=== PATIENT | male | born 1955 | race Caucasian/White ===

== ENCOUNTER 2018-03-10 20:22 | Inpatient (IN) | payer BC ==
[~2018-03-10] VITALS: Ht 182.9 cm; Wt 99.9 kg
--- NOTE | 2018-03-10 20:40 | NUR ---
NS running upon arrival as ordered @ [facility]; liters 2 & 3 infusing.
--- NOTE | 2018-03-10 21:02 | NUR ---
FAMILY CONTACT, EMILE GLENFORD- [phone] (HOME).
--- NOTE | 2018-03-10 21:06 | NUR ---
BEST FAMILY CONTACT LIDIA KING ([place]) [phone].
--- NOTE | 2018-03-10 21:08 | NUR ---
NS liter 2 completed; liter 3 continues to infuse.
[2018-03-10] MEDS ORDERED: LITH150C8 PO (21:24)
--- NOTE | 2018-03-10 21:48 | NUR ---
Discussed pt's HS meds with Dr Stearns; new order for [place] 150mg x1 now received.
[2018-03-10] MEDS ORDERED: lithium carbonate 150mg capsule PO SCH (21:50)
--- NOTE | 2018-03-10 21:50 | NUR ---
NS 3L infusing upon arrival, completed.
[2018-03-10] MEDS: sodium chloride 0.45% 1,000 ML IV SCH (22:24)
[2018-03-10] MEDS ORDERED: morphine 4 MG/ML inj SYRINge IV PRN (22:25)
[2018-03-10] MEDS ORDERED: magnesium hydroxide 30ml (MOM) UD suspension PO PRN (22:25)
[2018-03-10] MEDS ORDERED: mag hydrox/Alum hydrox/simeth 30ml oral suspension PO PRN (22:25)
[2018-03-10] MEDS ORDERED: acetaminophen 325mg tablet PO PRN ×2 (22:25)
[2018-03-10] MEDS ORDERED: HYDROmorphone 1 mg/ml syringe IV PRN (22:25)
[2018-03-10] MEDS ORDERED: diphenhydrAMINE 25mg capsule PO PRN (22:25)
[2018-03-10] MEDS ORDERED: hydrALAZINE 20mg/ml inj. IV PRN (22:25)
[2018-03-10] MEDS ORDERED: metoclopramide 5 mg/ml inj IV PRN (22:25)
[2018-03-10] MEDS ORDERED: diphenhydrAMINE 50 mg/ml inj IV PRN (22:25)
[2018-03-10] MEDS ORDERED: bisacodyl 10mg suppository rectal RC PRN (22:25)
[2018-03-10] MEDS ORDERED: ondansetron/PF 4mg/2ml inj IV PRN (22:25)
--- NOTE | 2018-03-10 22:55 | NUR ---
NOTE: Pt admission assessment inadvertantly charted by this RN under BRupp. M/S RN Eleonora to call back with room status as she was unaware pt Flu +.
[2018-03-10 22:58] LABS: ALANINE AMINOTRANSFERASE 560 U/L (12-78); ALBUMIN 3.3 G/DL (3.4-5.0); ALBUMIN/GLOBULIN RATIO 1.1 (1.1-1.5); ALKALINE PHOSPHATASE 137 IU/L (46-116); ANION GAP 14 (8-16); BILIRUBIN,TOTAL 1.6 MG/DL (0.1-1.0); BLOOD UREA NITROGEN 34 MG/DL (7-18); BUN/CREATININE RATIO 11.7 (5.4-32.0); CALCIUM 7.5 MG/DL (8.5-10.1); CHLORIDE 102 MMOL/L (99-107); CREATININE 2.91 MG/DL (0.60-1.10); GLUCOSE 96 MG/DL (70-104); POTASSIUM 3.3 MMOL/L (3.5-5.1); SODIUM 137 MMOL/L (135-145); TOTAL CARBON DIOXIDE 20.7 MMOL/L (24-32); TOTAL PROTEIN 6.3 G/DL (6.4-8.2); eGFR 22 ML/MIN
[2018-03-10 23:00] LABS: LIPASE 239 U/L (73-393); MAGNESIUM 2.1 MG/DL (1.5-2.4); PHOSPHORUS 3.8 MG/DL (2.3-4.5)
--- NOTE | 2018-03-10 23:05 | NUR ---
Received report from Addis HARP in ER, pt arrived via [place] scooted over to hospital bed, on 2.5L of O2 via NC, will further assess.
[2018-03-10 23:10] LABS: BASOPHILS % (AUTO) 0.1 % (0-1); EOSINOPHILS % (AUTO) 0.1 % (0-6); HEMATOCRIT 35.6 % (42.0-52.0); HEMOGLOBIN 12.6 g/dl (14.0-17.9); LYMPHOCYTES # (AUTO) 0.3 X10'3 (1.1-4.8); LYMPHOCYTES % (AUTO) 2.7 % (21-51); MEAN CORPUSCULAR HEMOGLOBIN 31.4 PG (27.0-31.0); MEAN CORPUSCULAR HGB CONC 35.3 % (33.0-36.5); MEAN PLATELET VOLUME 9.8 FL (7.4-10.4); MONOCYTES # (AUTO) 0.3 X10'3 (0-0.9); MONOCYTES % (AUTO) 2.1 % (2-12); PLATELET COUNT 98 X10'3 (140-440); RED CELL DISTRIBUTION WIDTH 12.7 % (11.5-14.5); WHITE BLOOD COUNT 12.6 X10'3 (4.5-11.0)
[2018-03-10 23:29] LABS: PLATELET ESTIMATE DECREASED; TOTAL CELLS COUNTED 100
[2018-03-10 23:32] LABS: ASPARTATE AMINO TRANSFERASE 1073 U/L (10-37)
[2018-03-10 23:43] VITALS: BP 157/102
[2018-03-10 23:44] LABS: HEMOGLOBIN A1C 5.3 % (4.5-6.2)
[2018-03-11 00:09] VITALS: BP 164/112
--- NOTE | 2018-03-11 01:02 | NUR ---
Rechecked pts B/P it was 156/102
[2018-03-11 01:03] VITALS: BP 156/102
[2018-03-11] MEDS ORDERED: potassium Cl 20 mEq SR tablet PO PRN (01:05)
[2018-03-11] MEDS ORDERED: potassium Cl 40MEQ/NS 500ml 500 ML IV PRN ×2 (01:05)
[2018-03-11] MEDS: potassium Cl 20 mEq SR tablet PO PRN ×3 (01:52→14:26)
--- NOTE | 2018-03-11 03:18 | NUR ---
Notified Dr. Sepulveda about pts B/P: 157/117 Dr. sepulveda was not worried no new orders.
[2018-03-11 05:02] LABS: BASOPHILS % (AUTO) 0.1 % (0-1); EOSINOPHILS % (AUTO) 0.1 % (0-6); HEMOGLOBIN 13.3 g/dl (14.0-17.9); LYMPHOCYTES # (AUTO) 0.3 X10'3 (1.1-4.8); MEAN CORPUSCULAR HEMOGLOBIN 31.3 PG (27.0-31.0); MEAN CORPUSCULAR HGB CONC 34.9 % (33.0-36.5); MEAN CORPUSCULAR VOLUME 89.6 FL (78-98); MEAN PLATELET VOLUME 9.4 FL (7.4-10.4); MONOCYTES # (AUTO) 0.2 X10'3 (0-0.9); MONOCYTES % (AUTO) 1.1 % (2-12); NEUTROPHILS # (AUTO) 13.6 X10'3 (1.8-7.7); NEUTROPHILS % (AUTO) 96.7 % (42-75); PLATELET COUNT 79 X10'3 (140-440); RED BLOOD COUNT 4.24 X10'6 (4.70-6.10); RED CELL DISTRIBUTION WIDTH 12.8 % (11.5-14.5); WHITE BLOOD COUNT 14.1 X10'3 (4.5-11.0)
[2018-03-11 05:20] LABS: CLARITY,URINE CLEAR (Clear); GLUCOSE, URINE NEGATIVE (Neg); KETONES,URINE TRACE mg/dl (Neg); LEUKOCYTE ESTERASE ,URINE NEGATIVE (Neg); NITRITES, URINE NEGATIVE (Neg); OCCULT BLOOD,URINE LARGE (Neg); PROTEIN,URINE 100 mg/dl (Neg)
[2018-03-11 05:20] LABS: ALBUMIN 3.1 G/DL (3.4-5.0); ALBUMIN/GLOBULIN RATIO 1.1 (1.1-1.5); ALKALINE PHOSPHATASE 167 IU/L (46-116); ANION GAP 22 (8-16); BILIRUBIN,DIRECT 2.1 MG/DL (0-0.3); BLOOD UREA NITROGEN 42 MG/DL (7-18); BUN/CREATININE RATIO 12.2 (5.4-32.0); CALCIUM 7.5 MG/DL (8.5-10.1); CHLORIDE 99 MMOL/L (99-107); CHOL/HDL RATIO 5.6 (0.00-4.99); CHOLESTEROL 145 MG/DL (0-200); CREATININE 3.43 MG/DL (0.60-1.10); GLUCOSE 97 MG/DL (70-104); HDL CHOLESTEROL 26 MG/DL (35-60); LDL CHOLESTEROL 112 MG/DL (50-100); POTASSIUM 3.2 MMOL/L (3.5-5.1); SODIUM 137 MMOL/L (135-145); TOTAL CARBON DIOXIDE 16.5 MMOL/L (24-32); TRIGLYCERIDES 49 MG/DL (20-135); eGFR 18 ML/MIN
[2018-03-11 05:30] LABS: COLOR,URINE PINK (Yellow); UA COLLECTION TYPE NON-SPECIFIED
[2018-03-11 05:34] LABS: COARSE GRANULAR CAST 0-3 /LPF (NEGATIVE)
[2018-03-11 05:35] LABS: BACTERIA,URINE FEW /HPF (Neg); RBC,URINE 50-100 /HPF (0-2); SQUAMOUS EPITHELIAL CELL,UR FEW /LPF (FEW); WBC,URINE 0-4 /HPF (0-4)
[2018-03-11] MEDS: sodium chloride 0.45% 1,000 ML IV SCH (05:36)
[2018-03-11 05:45] LABS: URINE AMPHETAMINE SCREEN NEGATIVE (Neg); URINE BARBITUATE SCREEN NEGATIVE (Neg); URINE BENZODIAZEPINES SCREEN NEGATIVE (Neg); URINE CANNABINOID SCREEN NEGATIVE (Neg); URINE COCAINE SCREEN NEGATIVE (Neg); URINE METHADONE SCREEN NEGATIVE (Neg); URINE OPIATE SCREEN NEGATIVE (Neg); URINE PHENCYCLIDINE SCREEN NEGATIVE (Neg)
[2018-03-11 05:46] LABS: ALANINE AMINOTRANSFERASE 1278 U/L (12-78)
[2018-03-11 05:47] LABS: ASPARTATE AMINO TRANSFERASE 2402 U/L (10-37)
--- NOTE | 2018-03-11 06:17 | NUR ---
Gave report to Nickie HARP, pt is awake and alert on 3L of O2 via NC, pt would like to know when Abdomen U/S is so he can have some water.
--- NOTE | 2018-03-11 06:45 | NUR ---
Patient in room RAVI 341. I have received report from KATIUSKA Robles and had the opportunity to ask questions and assume patient care.
[2018-03-11 07:07] VITALS: BP 167/102
[2018-03-11] MEDS ORDERED: docusate sod 100mg capsule PO SCH (08:00)
[2018-03-11] MEDS ORDERED: K and/or MAG REPLACEMENT MC SCH (08:00)
[2018-03-11] MEDS ORDERED: azithromycin/NS 500mg/250ml 250 ML IV SCH (08:00)
[2018-03-11] MEDS ORDERED: lisinopril 10 MG tablet PO SCH (08:00)
[2018-03-11] MEDS ORDERED: CefTRIAXone/D5W-Rocephin 1gm 50 ML IV SCH (08:00)
[2018-03-11] MEDS ORDERED: atorvastatin 20mg tablet PO SCH (08:00)
[2018-03-11] MEDS: pantoprazole 40mg Tablet.DR PO SCH (09:23)
[2018-03-11] MEDS: aspirin 81mg tab.chew PO SCH (09:25)
[2018-03-11] MEDS: metoprolol tartrate 25mg tablet PO SCH ×2 (09:26→20:00)
[2018-03-11] MEDS: nitroGLYCERIN 0.4mg/hour patch TD SCH (09:26)
--- NOTE | 2018-03-11 13:30 | NUR ---
Rapid Response called for pt. Pt. diaphoretic, skin mottled, SOB, O2 sat of 96% on 3L nc.
[2018-03-11 13:50] LABS: ABG BASE EXCESS -16.9 mmol/L (-2.0-3.0); ABG OXYGEN SATURATION 95.6 % (95-98); ABG PCO2 (T) 15.2 mmHg (35.0-48.0); ABG PH (T) 7.279 (7.350-7.450); ABG PO2 (T) 92.7 mmHg (83-108); ALLEN'S TEST Positive; FCOHb 0.3 % (0.5-1.5); FMetHb 0.1 % (0.3-1.12); FO2Hb 95.2 % (94-100); TOTAL HEMOGLOBIN 14.9 G/dl (14.0-18.0)
[2018-03-11] MEDS ORDERED: furosemide 40mg/4ml inj IV ONE (14:10)
[2018-03-11 15:00] VITALS: BP 142/93
--- NOTE | 2018-03-11 15:00 | NUR ---
Pt. transferred to PCU. Report called to KATIUSKA Adhikari. Pt alert and oriented. All belongings sent with pt.
--- NOTE | 2018-03-11 15:00 | NUR ---
patient received to room 3008, Dr. Hopkins at the bedside ordering a lot of new labs to be drawn. Patient is alert and answering all questions
[2018-03-11] MEDS ORDERED: methylPREDNISolone sod succ 125mg/2ml vial IV ONE ×2 (15:20→18:00)
[2018-03-11] MEDS ORDERED: nicotine 21mg patch - 24 hr TD ONE (15:20)
--- NOTE | 2018-03-11 15:40 | NUR ---
Extended PIV inserted to the right upper arm using ultrasound. Elizabeth well Addendum: 03/11/18 at 1541 by Adelaide Crenshaw RN Amended: Links added.
[2018-03-11 16:24] LABS: BASOPHILS % (AUTO) 0.1 % (0-1); EOSINOPHILS % (AUTO) 0 % (0-6); HEMATOCRIT 41.7 % (42.0-52.0); LYMPHOCYTES # (AUTO) 0.7 X10'3 (1.1-4.8); LYMPHOCYTES % (AUTO) 4.5 % (21-51); MEAN CORPUSCULAR HEMOGLOBIN 30.6 PG (27.0-31.0); MEAN CORPUSCULAR HGB CONC 33.6 % (33.0-36.5); MEAN CORPUSCULAR VOLUME 91.1 FL (78-98); MEAN PLATELET VOLUME 9.4 FL (7.4-10.4); MONOCYTES # (AUTO) 0.2 X10'3 (0-0.9); MONOCYTES % (AUTO) 1.4 % (2-12); NEUTROPHILS # (AUTO) 14.4 X10'3 (1.8-7.7); PLATELET COUNT 92 X10'3 (140-440); RED BLOOD COUNT 4.57 X10'6 (4.70-6.10); RED CELL DISTRIBUTION WIDTH 12.9 % (11.5-14.5); WHITE BLOOD COUNT 15.3 X10'3 (4.5-11.0)
[2018-03-11 16:34] LABS: LACTIC SEPSIS 8.4 MMOL/L (0.4-2.0)
[2018-03-11 16:36] LABS: INR 2.1 INR; PARTIAL THROMBOPLASTIN TIME 48 SECONDS (22-32); PROTHROMBIN TIME 20.1 SECONDS (9.0-12.0)
[2018-03-11 16:39] LABS: ALBUMIN 3.2 G/DL (3.4-5.0); ALKALINE PHOSPHATASE 181 IU/L (46-116); AMYLASE 148 U/L (25-115); ANION GAP 26 (8-16); BILIRUBIN,TOTAL 2.9 MG/DL (0.1-1.0); BLOOD UREA NITROGEN 57 MG/DL (7-18); BUN/CREATININE RATIO 11.3 (5.4-32.0); CHLORIDE 97 MMOL/L (99-107); CREATININE 5.06 MG/DL (0.60-1.10); ETHANOL < 0.010 GM/DL (0.0-0.010); GLUCOSE 72 MG/DL (70-104); LIPASE 544 U/L (73-393); MAGNESIUM 2.6 MG/DL (1.5-2.4); POTASSIUM 5.5 MMOL/L (3.5-5.1); SODIUM 135 MMOL/L (135-145); TOTAL PROTEIN 6.4 G/DL (6.4-8.2); eGFR 12 ML/MIN
--- NOTE | 2018-03-11 17:01 | NUR ---
PAGER ID: [phone] MESSAGE: patient in 3008, new admit, LACTIC IS 8.4
[2018-03-11 17:08] LABS: TOTAL CARBON DIOXIDE 12.2 MMOL/L (24-32); TROPONIN I 85.65 NG/ML (0.0-0.05)
[2018-03-11 17:09] LABS: ALANINE AMINOTRANSFERASE 2068 U/L (12-78); PHOSPHORUS 11.2 MG/DL (2.3-4.5)
[2018-03-11 17:13] LABS: ASPARTATE AMINO TRANSFERASE 4199 U/L (10-37)
[2018-03-11] MEDS: oseltamivir 30mg capsule PO SCH (17:19)
--- NOTE | 2018-03-11 17:34 | NUR ---
Dr. Calvillo at the bedside asking the patient if he wants to be FULL CODE, patient states that he does not want CPR and he wants to be DNR. Karli consulting to see if patient wants to go to ICU and he is saying that he just wants to be kept comfortable instead. All critical lab values have been called in to Dr. Pfeiffer.
[2018-03-11 18:00] VITALS: BP 128/86
[2018-03-11] MEDS: DOBUTamine-DoBUTrex 500mg/D5W 250 ML IV SCH (18:15)
--- NOTE | 2018-03-11 18:25 | NUR ---
dobutamine drip started at 5mcg and patient placed on bedside monitor.
--- NOTE | 2018-03-11 18:33 | NUR ---
Patient in room PCU 3008. I have received report from Mary HARP and had the opportunity to ask questions and assume patient care.
[2018-03-11] MEDS ORDERED: morphine 4 MG/ML inj SYRINge IV PRN (19:00)
[2018-03-11] MEDS ORDERED: LORazepam 2 mg/ml vial IV PRN (19:00)
[2018-03-11] MEDS: lactobacillus rhamnosus 10,000 MMU CELLS/CAPSULE PO SCH (20:13)
[2018-03-11] MEDS: lactulose 20gm/30ml cup PO SCH (20:13)
[2018-03-11 22:00] VITALS: BP 118/76
[2018-03-11] MEDS: piperacillin/tazo 3.375gm/50ml 50 ML IV SCH (23:32)
[2018-03-12] VITALS (9 sets, daily range): BP systolic 110–140; BP diastolic 69–99
[2018-03-12 00:52] LABS: CLARITY,URINE SLIGHTLY CLOUDY (Clear); COLOR,URINE YELLOW (Yellow); GLUCOSE, URINE 100 mg/dl (Neg); KETONES,URINE TRACE mg/dl (Neg); LEUKOCYTE ESTERASE ,URINE NEGATIVE (Neg); NITRITES, URINE NEGATIVE (Neg); OCCULT BLOOD,URINE LARGE (Neg); PH,URINE 6.5 (4.8-8.0); PROTEIN,URINE >=300 mg/dl (Neg)
[2018-03-12 01:00] LABS: TOTAL PROTEIN,URINE RANDOM 1024.5 MG/DL
[2018-03-12 01:16] LABS: UA COLLECTION TYPE NON-SPECIFIED
[2018-03-12 01:19] LABS: COARSE GRANULAR CAST 0-3 /LPF (NEGATIVE); SQUAMOUS EPITHELIAL CELL,UR MODERATE /LPF (FEW)
[2018-03-12 01:20] LABS: BACTERIA,URINE FEW /HPF (Neg); RBC,URINE TNTC /HPF (0-2)
[2018-03-12 02:29] LABS: UA EOSINOPHILS NO EOS /HPF
[2018-03-12] MEDS: piperacillin/tazo 3.375gm/50ml 50 ML IV SCH ×4 (03:09→21:52)
[2018-03-12] MEDS: linezolid 600mg/300ml PREMIX 300 ML IV SCH ×3 (04:25→20:14)
[2018-03-12 05:45] LABS: BASOPHILS % (AUTO) 0.1 % (0-1); EOSINOPHILS % (AUTO) 0 % (0-6); HEMATOCRIT 32.7 % (42.0-52.0); HEMOGLOBIN 11.1 g/dl (14.0-17.9); LYMPHOCYTES # (AUTO) 0.5 X10'3 (1.1-4.8); LYMPHOCYTES % (AUTO) 4.2 % (21-51); MEAN CORPUSCULAR HEMOGLOBIN 31.2 PG (27.0-31.0); MEAN CORPUSCULAR HGB CONC 34.2 % (33.0-36.5); MEAN CORPUSCULAR VOLUME 91.3 FL (78-98); MEAN PLATELET VOLUME 9.3 FL (7.4-10.4); MONOCYTES # (AUTO) 0.1 X10'3 (0-0.9); MONOCYTES % (AUTO) 0.8 % (2-12); NEUTROPHILS # (AUTO) 10.2 X10'3 (1.8-7.7); NEUTROPHILS % (AUTO) 94.9 % (42-75); PLATELET COUNT 54 X10'3 (140-440); RED BLOOD COUNT 3.58 X10'6 (4.70-6.10); RED CELL DISTRIBUTION WIDTH 12.9 % (11.5-14.5); WHITE BLOOD COUNT 10.8 X10'3 (4.5-11.0)
--- NOTE | 2018-03-12 06:27 | NUR ---
Problems reprioritized. Patient report given, questions answered & plan of care reviewed with Kimberly HARP.
--- NOTE | 2018-03-12 06:37 | NUR ---
Patient in room PCU 3008. I have received report from Paul HARP and had the opportunity to ask questions and assume patient care.
--- NOTE | 2018-03-12 07:13 | NUR ---
Spoke with Debbie Adair regarding critical calcium of 5.1 and critical glucose of 408. I checked capillary glucose with glucometer and result was 123. New order for an Ionized calcium.
[2018-03-12] MEDS: nitroGLYCERIN 0.4mg/hour patch TD SCH (08:00)
[2018-03-12] MEDS: nicotine 21mg patch - 24 hr TD SCH (08:00)
[2018-03-12] MEDS ORDERED: methylPREDNISolone sod succ/PF 40mg inj. IV ONE (08:00)
[2018-03-12] MEDS: lactobacillus rhamnosus 10,000 MMU CELLS/CAPSULE PO SCH ×2 (08:35→20:13)
[2018-03-12] MEDS: oseltamivir 30mg capsule PO SCH (08:35)
[2018-03-12] MEDS: aspirin 81mg tab.chew PO SCH (08:36)
[2018-03-12] MEDS: carvedilol 6.25mg tablet PO SCH ×2 (08:36→20:13)
[2018-03-12] MEDS: lactulose 20gm/30ml cup PO SCH ×2 (08:36→20:13)
[2018-03-12] MEDS: pantoprazole 40mg Tablet.DR PO SCH (08:37)
[2018-03-12 08:52] LABS: HBSAG SCREEN Negative (Negative); HEP A AB, IGM Negative (Negative); HEP B CORE AB, IGM Negative (Negative); HEP B CORE AB, TOT Negative (Negative); HEPATITIS C ANTIBODY <0.1 s/co ratio (0.0-0.9)
[2018-03-12] MEDS: DOBUTamine-DoBUTrex 500mg/D5W 250 ML IV SCH (09:20)
[2018-03-12 09:59] LABS: ALBUMIN 2.9 G/DL (3.4-5.0); ALKALINE PHOSPHATASE 151 IU/L (46-116); ANION GAP 20 (8-16); BILIRUBIN,TOTAL 1.8 MG/DL (0.1-1.0); BLOOD UREA NITROGEN 83 MG/DL (7-18); BUN/CREATININE RATIO 12.6 (5.4-32.0); CHLORIDE 97 MMOL/L (99-107); CREATININE 6.58 MG/DL (0.60-1.10); GLUCOSE 130 MG/DL (70-104); POTASSIUM 4.4 MMOL/L (3.5-5.1); SODIUM 132 MMOL/L (135-145); TOTAL CARBON DIOXIDE 15.1 MMOL/L (24-32); TOTAL PROTEIN 5.7 G/DL (6.4-8.2); eGFR 9 ML/MIN
[2018-03-12 10:26] LABS: ALANINE AMINOTRANSFERASE 4887 U/L (12-78); ASPARTATE AMINO TRANSFERASE > 7000 U/L (10-37)
[2018-03-12 10:27] LABS: CALCIUM 5.6 MG/DL (8.5-10.1)
--- NOTE | 2018-03-12 10:40 | NUR ---
PAGER ID: [phone] MESSAGE: [phone] Geraldo Gasca Critical low calcium of 5.6. All labs are in. Thank you, Kimberly #[phone] Addendum: 03/12/18 at 1100 by Kimberly Thornton RN Dr. Pfeiffer called back. New orders for calcium gluconate 2 gm IV now, and repeat CMP,CBC, Ammonia, Lactic Acid, Lipase, Troponin, and PBNP at 1400.
[2018-03-12] MEDS ORDERED: calcium gluconate inj. 2 GM in normal saline 100ml IV soln 80 ML IV ONE (10:50)
[2018-03-12 11:49] LABS: CREATINE KINASE 21461 U/L (39-308)
[2018-03-12] MEDS ORDERED: calcium chloride 100 MG/1 ML inj IV ONE (12:35)
[2018-03-12] MEDS ORDERED: calcium chloride inj. 2,000 MG in normal saline 100ml IV soln 80 ML IV ONE (12:45)
[2018-03-12 14:29] LABS: BASOPHILS # (AUTO) 0.1 X10'3 (0-0.2); BASOPHILS % (AUTO) 0.7 % (0-1); EOSINOPHILS % (AUTO) 0 % (0-6); HEMATOCRIT 35.7 % (42.0-52.0); HEMOGLOBIN 11.8 g/dl (14.0-17.9); LYMPHOCYTES # (AUTO) 0.6 X10'3 (1.1-4.8); LYMPHOCYTES % (AUTO) 4.3 % (21-51); MEAN CORPUSCULAR HEMOGLOBIN 30.1 PG (27.0-31.0); MEAN CORPUSCULAR HGB CONC 33.1 % (33.0-36.5); MEAN CORPUSCULAR VOLUME 91.1 FL (78-98); MEAN PLATELET VOLUME 9.4 FL (7.4-10.4); MONOCYTES # (AUTO) 0.1 X10'3 (0-0.9); MONOCYTES % (AUTO) 0.9 % (2-12); NEUTROPHILS # (AUTO) 12.7 X10'3 (1.8-7.7); NEUTROPHILS % (AUTO) 94.1 % (42-75); PLATELET COUNT 52 X10'3 (140-440); RED BLOOD COUNT 3.91 X10'6 (4.70-6.10); RED CELL DISTRIBUTION WIDTH 13.1 % (11.5-14.5); WHITE BLOOD COUNT 13.5 X10'3 (4.5-11.0)
--- NOTE | 2018-03-12 14:50 | NUR ---
Zyvox ed: Pt currently receiving Zyvox. Attempted visit with pt at bedside however pt was sleeping and did not wake for RD visit. Patient's present in the room, given written and verbal low tyramine nutrition therapy education with RD contact information. Will remain available. Addendum: 03/12/18 at [address] Amended: Links added.
[2018-03-12 14:59] LABS: PLATELET ESTIMATE DECREASED; TOTAL CELLS COUNTED 100
[2018-03-12 15:00] LABS: BURR CELLS 2+
[2018-03-12] MEDS: sodium bicarbonate (8.4%) inj. 150 MEQ in dextrose 5%-water 1,000 ML IV SCH (15:08)
--- NOTE | 2018-03-12 18:32 | NUR ---
Problems reprioritized. Patient report given, questions answered & plan of care reviewed with Deep RN.
[2018-03-13] VITALS (17 sets, daily range): BP systolic 117–138; BP diastolic 74–98
[2018-03-13] MEDS: DOBUTamine-DoBUTrex 500mg/D5W 250 ML IV SCH ×2 (02:50→17:10)
[2018-03-13] MEDS: piperacillin/tazo 3.375gm/50ml 50 ML IV SCH ×3 (02:50→14:04)
[2018-03-13 06:47] LABS: BASOPHILS % (AUTO) 0.2 % (0-1); EOSINOPHILS % (AUTO) 0 % (0-6); HEMATOCRIT 34.8 % (42.0-52.0); HEMOGLOBIN 11.8 g/dl (14.0-17.9); LYMPHOCYTES # (AUTO) 0.5 X10'3 (1.1-4.8); LYMPHOCYTES % (AUTO) 2.9 % (21-51); MEAN CORPUSCULAR HEMOGLOBIN 30.2 PG (27.0-31.0); MEAN CORPUSCULAR HGB CONC 33.9 % (33.0-36.5); MEAN CORPUSCULAR VOLUME 89.2 FL (78-98); MEAN PLATELET VOLUME 10.2 FL (7.4-10.4); MONOCYTES # (AUTO) 0.2 X10'3 (0-0.9); MONOCYTES % (AUTO) 1.4 % (2-12); NEUTROPHILS # (AUTO) 14.7 X10'3 (1.8-7.7); NEUTROPHILS % (AUTO) 95.5 % (42-75); PLATELET COUNT 54 X10'3 (140-440); RED BLOOD COUNT 3.91 X10'6 (4.70-6.10); RED CELL DISTRIBUTION WIDTH 13.3 % (11.5-14.5); WHITE BLOOD COUNT 15.4 X10'3 (4.5-11.0)
--- NOTE | 2018-03-13 06:52 | NUR ---
Patient in room PCU 3008. I have received report from Ramesh RN and had the opportunity to ask questions and assume patient care. Vital signs are stable, Dobutamine is running 5 mcg/kg/min, and sodium bicarb is running at 50 mL/hr. Pt is on 2 L NC and without signs of distress. Will continue to monitor.
[2018-03-13 07:00] LABS: INR 2.1 INR; PROTHROMBIN TIME 20.1 SECONDS (9.0-12.0)
[2018-03-13 07:02] LABS: LACTIC SEPSIS 1.7 MMOL/L (0.4-2.0)
[2018-03-13 07:23] LABS: ANION GAP 22 (8-16); BILIRUBIN,TOTAL 1.7 MG/DL (0.1-1.0); BLOOD UREA NITROGEN 104 MG/DL (7-18); BUN/CREATININE RATIO 12.5 (5.4-32.0); CHLORIDE 95 MMOL/L (99-107); CREATININE 8.29 MG/DL (0.60-1.10); GLUCOSE 129 MG/DL (70-104); MAGNESIUM 2.5 MG/DL (1.5-2.4); POTASSIUM 4.2 MMOL/L (3.5-5.1); SODIUM 132 MMOL/L (135-145); TOTAL CARBON DIOXIDE 15.5 MMOL/L (24-32); eGFR 7 ML/MIN
[2018-03-13 07:24] LABS: ALBUMIN 2.7 G/DL (3.4-5.0); ALKALINE PHOSPHATASE 134 IU/L (46-116); TOTAL PROTEIN 5.3 G/DL (6.4-8.2)
[2018-03-13] MEDS: linezolid 600mg/300ml PREMIX 300 ML IV SCH ×2 (07:54→21:03)
[2018-03-13] MEDS: lactobacillus rhamnosus 10,000 MMU CELLS/CAPSULE PO SCH ×2 (07:55→21:03)
[2018-03-13] MEDS: aspirin 81mg tab.chew PO SCH (07:55)
[2018-03-13] MEDS: oseltamivir 30mg capsule PO SCH (07:55)
[2018-03-13] MEDS: carvedilol 6.25mg tablet PO SCH ×2 (07:55→21:03)
[2018-03-13] MEDS: lactulose 20gm/30ml cup PO SCH ×2 (07:56→21:03)
[2018-03-13] MEDS: nicotine 21mg patch - 24 hr TD SCH (08:00)
[2018-03-13 08:50] LABS: CREATINE KINASE 66250 U/L (39-308); PHOSPHORUS 10.8 MG/DL (2.3-4.5)
[2018-03-13 08:51] LABS: ALANINE AMINOTRANSFERASE 4435 U/L (12-78); ASPARTATE AMINO TRANSFERASE > 7000 U/L (10-37); LIPASE 3930 U/L (73-393)
[2018-03-13 08:52] LABS: CALCIUM < 5.0 MG/DL (8.5-10.1); TROPONIN I 15.66 NG/ML (0.0-0.05)
--- NOTE | 2018-03-13 09:02 | NUR ---
PAGER ID: [phone] MESSAGE: [phone] Geraldo Gasca CMP has resulted. Critical low Calcium 5.0, and critical high trops 15.66 (down from 85). Kidney and Liver test also worse. Thank you #[phone]
--- NOTE | 2018-03-13 09:15 | NUR ---
Dr. Pfeiffer called back. Per Dr. Pfeiffer, I am to get a hold of Dr. Calvillo to tell him the results of the BUN, Creatinine, GFR, and critical calcium. I called Dr. Calvillo twice with no answer. Dr. Calvillo called back and explained to me he was in an emergent situation and would look into patient's chart as soon as he could.
[2018-03-13] MEDS ORDERED: calcium chloride 100 MG/1 ML inj IV ONE (09:25)
--- NOTE | 2018-03-13 10:05 | NUR ---
PAGER ID: [phone] MESSAGE: [phone] Geraldo Gasca [address] with Dr. Calvillo in regards to critical calcium and BUN of 104 and increased Creatinine of 8.29 and a GFR of 7. He stated he was in an emergent situation and would look into it once he had a chance. Kimberly [phone]
[2018-03-13] MEDS ORDERED: calcium chloride inj. 2,000 MG in normal saline 100ml IV soln 80 ML IV ONE (10:25)
[2018-03-13] MEDS: sodium bicarbonate (8.4%) inj. 150 MEQ in dextrose 5%-water 1,000 ML IV SCH (11:29)
[2018-03-13] MEDS ORDERED: normal saline 1000ml 1,000 ML IV SCH (14:37)
[2018-03-13] MEDS ORDERED: fentaNYL/PF 50MCG/1 ML 2ML syringe IV PRN (14:40)
[2018-03-13] MEDS ORDERED: LIDOcaine 1%/PF 5ML 10 MG/ML VIAL SQ ONE (14:40)
[2018-03-13] MEDS ORDERED: heparin 1,000 units/ml 10ml inj ICATH ONE (14:40)
[2018-03-13] MEDS ORDERED: midazolam 2 mg/2 ml injection IV PRN (14:40)
[2018-03-13] MEDS ORDERED: LIDOcaine 1%/PF 5ML 10 MG/ML VIAL ONE (14:55)
--- NOTE | 2018-03-13 14:56 | NUR ---
Pt taken by RN from Angio for TDC placement. Pt was on Dobutamine 5 mcg/kg/min, Sodium Bicarb at 75 mL/hr, on 1 L of O2 NC and vital signs stable. Pt is on mobile. Awaiting patient's return.
[2018-03-13] MEDS ORDERED: fentaNYL/PF 50MCG/1 ML 2ML syringe ONE (14:57)
[2018-03-13] MEDS ORDERED: heparin 1,000unit/ml 10ml vial 10 ML ONE (14:58)
--- NOTE | 2018-03-13 15:35 | NUR ---
Pt returned from procedure. Temporary dialysis catheter placed, located on right side of neck. Dressing is CDI, vital signs obtained and are stable. Patient is alert and oriented X4, and without signs of distress. Will continue to monitor.
[2018-03-13] MEDS: piperacillin-tazo 2.25gm/50ml 50 ML IV SCH (16:00)
--- NOTE | 2018-03-13 18:25 | NUR ---
Problems reprioritized. Patient report given, questions answered & plan of care reviewed with Deep RN.
[2018-03-14] VITALS (10 sets, daily range): BP systolic 124–148; BP diastolic 59–95
[2018-03-14] MEDS: piperacillin-tazo 2.25gm/50ml 50 ML IV SCH ×3 (01:10→16:45)
[2018-03-14] MEDS: sodium bicarbonate (8.4%) inj. 150 MEQ in dextrose 5%-water 1,000 ML IV SCH ×2 (05:02→20:38)
--- NOTE | 2018-03-14 07:04 | NUR ---
Problems reprioritized. Patient report given, questions answered & plan of care reviewed with KATIUSKA Madison.
[2018-03-14 07:30] LABS: INR 1.7 INR; PROTHROMBIN TIME 16.7 SECONDS (9.0-12.0)
[2018-03-14] MEDS ORDERED: normal saline 1000ml 250 ML IV PRN (08:00)
[2018-03-14] MEDS ORDERED: normal saline 1000ml 100 ML IV PRN (08:00)
[2018-03-14] MEDS: nicotine 21mg patch - 24 hr TD SCH (08:00)
[2018-03-14] MEDS ORDERED: heparin 1,000 units/ml 10ml inj HE ONE ×2 (08:00)
[2018-03-14] MEDS: carvedilol 6.25mg tablet PO SCH ×2 (08:32→20:36)
[2018-03-14] MEDS: lactobacillus rhamnosus 10,000 MMU CELLS/CAPSULE PO SCH ×2 (08:33→20:35)
[2018-03-14] MEDS: oseltamivir 30mg capsule PO SCH (08:33)
[2018-03-14] MEDS: aspirin 81mg tab.chew PO SCH (08:34)
[2018-03-14] MEDS: lactulose 20gm/30ml cup PO SCH ×2 (08:37→20:35)
[2018-03-14] MEDS: linezolid 600mg/300ml PREMIX 300 ML IV SCH (08:45)
[2018-03-14 08:53] LABS: BASOPHILS % (AUTO) 0 % (0-1); EOSINOPHILS % (AUTO) 0 % (0-6); HEMATOCRIT 34.9 % (42.0-52.0); HEMOGLOBIN 11.8 g/dl (14.0-17.9); LYMPHOCYTES # (AUTO) 0.3 X10'3 (1.1-4.8); LYMPHOCYTES % (AUTO) 2.9 % (21-51); MEAN CORPUSCULAR HEMOGLOBIN 29.9 PG (27.0-31.0); MEAN CORPUSCULAR HGB CONC 33.7 % (33.0-36.5); MEAN CORPUSCULAR VOLUME 88.7 FL (78-98); MEAN PLATELET VOLUME 10.3 FL (7.4-10.4); MONOCYTES # (AUTO) 0.3 X10'3 (0-0.9); MONOCYTES % (AUTO) 2.6 % (2-12); NEUTROPHILS # (AUTO) 11.2 X10'3 (1.8-7.7); NEUTROPHILS % (AUTO) 94.5 % (42-75); RED BLOOD COUNT 3.94 X10'6 (4.70-6.10); RED CELL DISTRIBUTION WIDTH 13.5 % (11.5-14.5); WHITE BLOOD COUNT 11.9 X10'3 (4.5-11.0)
[2018-03-14 09:19] LABS: PLATELET COUNT 46 X10'3 (140-440)
[2018-03-14 09:24] LABS: PLATELET ESTIMATE DECREASED; TOTAL CELLS COUNTED 100
[2018-03-14 09:25] LABS: BURR CELLS 2+; POLYCHROMASIA FEW; TOXIC GRANULATION 1+; TOXIC VACUOLATION 1+
[2018-03-14 09:32] LABS: ALBUMIN 2.5 G/DL (3.4-5.0); ALKALINE PHOSPHATASE 125 IU/L (46-116); ANION GAP 23 (8-16); BILIRUBIN,TOTAL 1.6 MG/DL (0.1-1.0); BLOOD UREA NITROGEN 111 MG/DL (7-18); BUN/CREATININE RATIO 11.5 (5.4-32.0); CHLORIDE 90 MMOL/L (99-107); CREATININE 9.62 MG/DL (0.60-1.10); GLUCOSE 131 MG/DL (70-104); MAGNESIUM 2.4 MG/DL (1.5-2.4); PHOSPHORUS 8.9 MG/DL (2.3-4.5); POTASSIUM 3.5 MMOL/L (3.5-5.1); SODIUM 129 MMOL/L (135-145); TOTAL PROTEIN 5.1 G/DL (6.4-8.2); eGFR 6 ML/MIN
[2018-03-14 10:11] LABS: ALANINE AMINOTRANSFERASE 3544 U/L (12-78); ASPARTATE AMINO TRANSFERASE 3045 U/L (10-37); LIPASE 2932 U/L (73-393)
[2018-03-14 10:16] LABS: CALCIUM < 5.0 MG/DL (8.5-10.1)
[2018-03-14] MEDS ORDERED: calcium chloride 100 MG/1 ML inj IV ONE (10:20)
[2018-03-14] MEDS ORDERED: CALCIUM CHLORIDE IV ONE (10:30)
[2018-03-14] MEDS ORDERED: NORMAL SALINE IV ONE (10:30)
[2018-03-14] MEDS: DOBUTamine-DoBUTrex 500mg/D5W 250 ML IV SCH (11:13)
[2018-03-14 11:26] LABS: CREATINE KINASE 51096 U/L (39-308)
--- NOTE | 2018-03-14 18:38 | NUR ---
Patient in room PCU 3020. I have received report from Gricelda HARP and had the opportunity to ask questions and assume patient care.
[2018-03-14] MEDS: linezolid 600mg tablet PO SCH (20:36)
[2018-03-14] MEDS: HYDROcodone/acetaminophen 10/325mg tab PO PRN (21:16)
[2018-03-14] MEDS: temazepam 15mg capsule PO PRN (21:16)
[2018-03-15] VITALS (16 sets, daily range): BP systolic 129–165; BP diastolic 81–102
[2018-03-15] MEDS: piperacillin-tazo 2.25gm/50ml 50 ML IV SCH ×3 (00:29→15:57)
[2018-03-15] MEDS: DOBUTamine-DoBUTrex 500mg/D5W 250 ML IV SCH ×3 (01:11→16:47)
[2018-03-15] MEDS: temazepam 15mg capsule PO PRN (02:16)
[2018-03-15 06:59] LABS: INR 1.5 INR; PROTHROMBIN TIME 15.2 SECONDS (9.0-12.0)
[2018-03-15 07:13] LABS: ALBUMIN 2.3 G/DL (3.4-5.0); ALBUMIN/GLOBULIN RATIO 0.9 (1.1-1.5); ALKALINE PHOSPHATASE 119 IU/L (46-116); ANION GAP 20 (8-16); BILIRUBIN,TOTAL 1.7 MG/DL (0.1-1.0); BLOOD UREA NITROGEN 92 MG/DL (7-18); BUN/CREATININE RATIO 10.2 (5.4-32.0); CHLORIDE 89 MMOL/L (99-107); CREATININE 8.98 MG/DL (0.60-1.10); GLUCOSE 100 MG/DL (70-104); MAGNESIUM 2.1 MG/DL (1.5-2.4); PHOSPHORUS 5.9 MG/DL (2.3-4.5); SODIUM 129 MMOL/L (135-145); TOTAL CARBON DIOXIDE 20.3 MMOL/L (24-32); TOTAL PROTEIN 4.9 G/DL (6.4-8.2); eGFR 6 ML/MIN
[2018-03-15 07:28] LABS: BASOPHILS % (AUTO) 0.1 % (0-1); EOSINOPHILS % (AUTO) 0 % (0-6); HEMATOCRIT 34.2 % (42.0-52.0); HEMOGLOBIN 11.6 g/dl (14.0-17.9); LYMPHOCYTES # (AUTO) 0.4 X10'3 (1.1-4.8); MEAN CORPUSCULAR HEMOGLOBIN 30.2 PG (27.0-31.0); MEAN CORPUSCULAR HGB CONC 33.9 % (33.0-36.5); MEAN CORPUSCULAR VOLUME 89.3 FL (78-98); MEAN PLATELET VOLUME 9.7 FL (7.4-10.4); MONOCYTES # (AUTO) 0.3 X10'3 (0-0.9); MONOCYTES % (AUTO) 3.4 % (2-12); NEUTROPHILS # (AUTO) 9.1 X10'3 (1.8-7.7); NEUTROPHILS % (AUTO) 92.5 % (42-75); RED BLOOD COUNT 3.83 X10'6 (4.70-6.10); RED CELL DISTRIBUTION WIDTH 13.4 % (11.5-14.5); WHITE BLOOD COUNT 9.8 X10'3 (4.5-11.0)
[2018-03-15 07:29] LABS: ALANINE AMINOTRANSFERASE 2670 U/L (12-78); ASPARTATE AMINO TRANSFERASE 1492 U/L (10-37); CREATINE KINASE 31548 U/L (39-308); LIPASE 3879 U/L (73-393)
--- NOTE | 2018-03-15 07:31 | NUR ---
Problems reprioritized. Patient report given, questions answered & plan of care reviewed with Pat RN.
[2018-03-15 07:32] LABS: CALCIUM 5.5 MG/DL (8.5-10.1)
[2018-03-15 07:59] LABS: PLATELET COUNT 43 X10'3 (140-440)
[2018-03-15] MEDS: oseltamivir 30mg capsule PO SCH (08:00)
[2018-03-15] MEDS ORDERED: normal saline 1000ml 250 ML IV PRN (08:00)
[2018-03-15] MEDS: aspirin 81mg tab.chew PO SCH (08:00)
[2018-03-15] MEDS ORDERED: heparin 1,000 units/ml 10ml inj HE ONE ×2 (08:00)
[2018-03-15] MEDS ORDERED: heparin 1,000unit/ml 10ml vial 10 ML IV ONE (08:00)
[2018-03-15] MEDS: nicotine 21mg patch - 24 hr TD SCH (08:00)
[2018-03-15 08:02] LABS: PLATELET ESTIMATE DECREASED; TOTAL CELLS COUNTED 100
[2018-03-15 08:03] LABS: LARGE PLATELETS FEW; POLYCHROMASIA 1+
[2018-03-15] MEDS: linezolid 600mg tablet PO SCH ×2 (08:19→19:28)
[2018-03-15] MEDS: carvedilol 6.25mg tablet PO SCH ×2 (08:19→19:28)
[2018-03-15] MEDS: lactobacillus rhamnosus 10,000 MMU CELLS/CAPSULE PO SCH ×2 (08:20→19:28)
[2018-03-15] MEDS: lactulose 20gm/30ml cup PO SCH ×2 (08:21→19:28)
[2018-03-15] MEDS: sodium bicarbonate (8.4%) inj. 150 MEQ in dextrose 5%-water 1,000 ML IV SCH (14:20)
--- NOTE | 2018-03-15 15:25 | NUR ---
Initial: Pt admit w/ NSTEMI, fulminant liver failure, EF 20-25%, and flu. First HD 1/4 w/ another HD today per MD note. Pt liquid stools on lactulose w/ lipase increased to 3879 past 5 days from normal; no hx pancreatitis. Creating kinase decreasing from previous. Receiving Ca per MD Rx for ionized CA low .74. Na/K low w/ stools. Will monitor for additional GI results and protein needs. Rec: 1. advance to regular diet per MD 2. monitor for ONS needs 3. monitor for additional GI symptoms/PERT needs if lipase remains elevated 4. wt per rx Addendum: 03/15/18 at [address] Amended: Links added.
--- NOTE | 2018-03-15 18:46 | NUR ---
Patient in room PCU 3020. I have received report from KATIUSKA Clemons and had the opportunity to ask questions and assume patient care.
--- NOTE | 2018-03-15 22:23 | NUR ---
paged rt to see pt having a hard time clearing secretions, pt 02 saturation mid 80's placed on 2L nc, encouraged deep cough, pt too weak to cough up.
[2018-03-15] MEDS ORDERED: furosemide 40mg/4ml inj IV ONE (22:50)
--- NOTE | 2018-03-15 22:52 | NUR ---
called Harvinder, orders for lasix 40 mg ivp x1, CXR, bipap.
[2018-03-15] MEDS ORDERED: furosemide 40mg/4ml inj ONE (22:58)
[2018-03-16] VITALS (12 sets, daily range): BP systolic 131–164; BP diastolic 72–102
[2018-03-16] MEDS: piperacillin-tazo 2.25gm/50ml 50 ML IV SCH ×3 (00:20→15:30)
[2018-03-16 00:21] LABS: ABG BASE EXCESS -1.3 mmol/L (-2.0-3.0); ABG HCO3 22.3 mmol/L (22.0-26.0); ABG OXYGEN SATURATION 98.6 % (95-98); ABG PCO2 (T) 33.9 mmHg (35.0-48.0); ABG PH (T) 7.437 (7.350-7.450); ABG PO2 (T) 150.9 mmHg (83-108); ALLEN'S TEST Positive; FCOHb 0.4 % (0.5-1.5); FMetHb 0.1 % (0.3-1.12); FO2Hb 98.1 % (94-100); MINUTE VOLUME 28 L/min; PATIENT TEMPERATURE 37.4; RESPIRATORY RATE 20 b/min; RESPIRATORY RATE (OBSERVED) 27 b/min; TIDAL VOLUME 1481 mL; TOTAL HEMOGLOBIN 11.3 G/dl (14.0-18.0)
[2018-03-16] MEDS: sodium bicarbonate (8.4%) inj. 150 MEQ in dextrose 5%-water 1,000 ML IV SCH ×2 (01:09→09:11)
[2018-03-16 02:13] LABS: MAGNESIUM 1.9 MG/DL (1.5-2.4); PHOSPHORUS 4.9 MG/DL (2.3-4.5)
[2018-03-16 03:21] LABS: CREATINE KINASE 17181 U/L (39-308)
--- NOTE | 2018-03-16 06:20 | NUR ---
Patient in room PCU 3020. I have received report from KATIUSKA Lockwood and had the opportunity to ask questions and assume patient care.
--- NOTE | 2018-03-16 06:23 | NUR ---
Problems reprioritized. Patient report given, questions answered & plan of care reviewed with KATIUSKA Pereira.
[2018-03-16 06:26] LABS: BASOPHILS % (AUTO) 0.1 % (0-1); EOSINOPHILS % (AUTO) 0.4 % (0-6); HEMATOCRIT 31.2 % (42.0-52.0); HEMOGLOBIN 10.6 g/dl (14.0-17.9); LYMPHOCYTES # (AUTO) 0.4 X10'3 (1.1-4.8); LYMPHOCYTES % (AUTO) 3.8 % (21-51); MEAN CORPUSCULAR HEMOGLOBIN 30.1 PG (27.0-31.0); MEAN CORPUSCULAR HGB CONC 33.8 % (33.0-36.5); MEAN CORPUSCULAR VOLUME 88.9 FL (78-98); MEAN PLATELET VOLUME 10.2 FL (7.4-10.4); MONOCYTES # (AUTO) 0.2 X10'3 (0-0.9); MONOCYTES % (AUTO) 2.1 % (2-12); NEUTROPHILS # (AUTO) 9.2 X10'3 (1.8-7.7); NEUTROPHILS % (AUTO) 93.6 % (42-75); RED BLOOD COUNT 3.51 X10'6 (4.70-6.10); RED CELL DISTRIBUTION WIDTH 13.4 % (11.5-14.5); WHITE BLOOD COUNT 9.9 X10'3 (4.5-11.0)
[2018-03-16 06:29] LABS: PLATELET COUNT 50 X10'3 (140-440)
[2018-03-16 06:34] LABS: INR 1.4 INR
--- NOTE | 2018-03-16 06:38 | NUR ---
Called Bal Blanton re critical platelet level. No new orders received. Will continue to monitor.
[2018-03-16 07:00] LABS: ALBUMIN 2.1 G/DL (3.4-5.0); ALBUMIN/GLOBULIN RATIO 0.8 (1.1-1.5); ALKALINE PHOSPHATASE 109 IU/L (46-116); ANION GAP 17 (8-16); ASPARTATE AMINO TRANSFERASE 709 U/L (10-37); BILIRUBIN,TOTAL 1.6 MG/DL (0.1-1.0); BLOOD UREA NITROGEN 80 MG/DL (7-18); BUN/CREATININE RATIO 9.4 (5.4-32.0); CHLORIDE 90 MMOL/L (99-107); CREATININE 8.51 MG/DL (0.60-1.10); GLUCOSE 130 MG/DL (70-104); SODIUM 130 MMOL/L (135-145); TOTAL CARBON DIOXIDE 22.9 MMOL/L (24-32); TOTAL PROTEIN 4.8 G/DL (6.4-8.2); eGFR 6 ML/MIN
[2018-03-16] MEDS: lactulose 20gm/30ml cup PO SCH ×2 (07:26→19:28)
[2018-03-16 07:29] LABS: ALANINE AMINOTRANSFERASE 1753 U/L (12-78)
[2018-03-16] MEDS: lactobacillus rhamnosus 10,000 MMU CELLS/CAPSULE PO SCH ×2 (07:35→19:29)
[2018-03-16] MEDS: carvedilol 6.25mg tablet PO SCH ×2 (07:35→19:29)
[2018-03-16] MEDS: nicotine 21mg patch - 24 hr TD SCH (07:35)
[2018-03-16] MEDS: oseltamivir 30mg capsule PO SCH (07:35)
[2018-03-16] MEDS: linezolid 600mg tablet PO SCH ×2 (07:35→19:29)
[2018-03-16] MEDS: aspirin 81mg tab.chew PO SCH (07:38)
[2018-03-16] MEDS ORDERED: heparin 1,000unit/ml 10ml vial 10 ML IV ONE (08:00)
[2018-03-16] MEDS ORDERED: heparin 1,000 units/ml 10ml inj HE ONE ×2 (08:00)
[2018-03-16] MEDS ORDERED: normal saline 1000ml 250 ML IV PRN (08:00)
[2018-03-16 08:21] LABS: CALCIUM 5.4 MG/DL (8.5-10.1)
--- NOTE | 2018-03-16 08:33 | NUR ---
Called Dr. Calvillo & left message re K & Ca levels.
--- NOTE | 2018-03-16 10:30 | NUR ---
Paged Dr. Rivera re critical labs. PAGER ID: [phone] MESSAGE: Pt Geraldo Gasca in 3020. K at 3.0, Ca at 5.4. No electrolyte replacement protocol ordered. Thanks! Kelli HARP [phone]
[2018-03-16] MEDS: DOBUTamine-DoBUTrex 500mg/D5W 250 ML IV SCH (14:08)
[2018-03-16] MEDS ORDERED: ipratropium/albuterol 3ml nebule NEB PRN (15:50)
--- NOTE | 2018-03-16 18:00 | NUR ---
Patient in room PCU 3020. I have received report from KAITUSKA Pereira and had the opportunity to ask questions and assume patient care.
--- NOTE | 2018-03-16 18:26 | NUR ---
Problems reprioritized. Patient report given, questions answered & plan of care reviewed with KATIUSKA Lockwood.
[2018-03-16] MEDS: ipratropium/albuterol 3ml nebule NEB SCH (21:23)
[2018-03-17] VITALS (9 sets, daily range): BP systolic 140–169; BP diastolic 67–105
[2018-03-17] MEDS: piperacillin-tazo 2.25gm/50ml 50 ML IV SCH ×3 (01:00→15:35)
[2018-03-17 02:28] LABS: BASOPHILS % (AUTO) 0 % (0-1); EOSINOPHILS % (AUTO) 0 % (0-6); HEMATOCRIT 32.5 % (42.0-52.0); LYMPHOCYTES # (AUTO) 0.4 X10'3 (1.1-4.8); LYMPHOCYTES % (AUTO) 3.5 % (21-51); MEAN CORPUSCULAR HEMOGLOBIN 30.1 PG (27.0-31.0); MEAN CORPUSCULAR HGB CONC 33.9 % (33.0-36.5); MEAN CORPUSCULAR VOLUME 88.8 FL (78-98); MEAN PLATELET VOLUME 9.2 FL (7.4-10.4); MONOCYTES # (AUTO) 0.3 X10'3 (0-0.9); MONOCYTES % (AUTO) 2.8 % (2-12); NEUTROPHILS # (AUTO) 9.8 X10'3 (1.8-7.7); NEUTROPHILS % (AUTO) 93.7 % (42-75); PLATELET COUNT 55 X10'3 (140-440); RED BLOOD COUNT 3.66 X10'6 (4.70-6.10); RED CELL DISTRIBUTION WIDTH 13.5 % (11.5-14.5); WHITE BLOOD COUNT 10.5 X10'3 (4.5-11.0)
[2018-03-17 03:04] LABS: ALBUMIN 2.3 G/DL (3.4-5.0); ALBUMIN/GLOBULIN RATIO 0.7 (1.1-1.5); ALKALINE PHOSPHATASE 126 IU/L (46-116); ANION GAP 16 (8-16); ASPARTATE AMINO TRANSFERASE 524 U/L (10-37); BILIRUBIN,TOTAL 1.7 MG/DL (0.1-1.0); BLOOD UREA NITROGEN 59 MG/DL (7-18); BUN/CREATININE RATIO 8.7 (5.4-32.0); CALCIUM 6.1 MG/DL (8.5-10.1); CHLORIDE 92 MMOL/L (99-107); CREATININE 6.78 MG/DL (0.60-1.10); GLUCOSE 107 MG/DL (70-104); POTASSIUM 3.1 MMOL/L (3.5-5.1); SODIUM 133 MMOL/L (135-145); TOTAL CARBON DIOXIDE 25.4 MMOL/L (24-32); TOTAL PROTEIN 5.4 G/DL (6.4-8.2); eGFR 8 ML/MIN
[2018-03-17 03:05] LABS: ALANINE AMINOTRANSFERASE 1500 U/L (12-78); CREATINE KINASE 9140 U/L (39-308)
[2018-03-17] MEDS: ipratropium/albuterol 3ml nebule NEB SCH ×4 (03:07→20:14)
[2018-03-17] MEDS: DOBUTamine-DoBUTrex 500mg/D5W 250 ML IV SCH ×3 (04:50→20:33)
--- NOTE | 2018-03-17 06:27 | NUR ---
Problems reprioritized. Patient report given, questions answered & plan of care reviewed with KATIUSKA Hayes.
--- NOTE | 2018-03-17 06:40 | NUR ---
Patient in room PCU 3020. I have received report from KATIUSKA Lockwood and had the opportunity to ask questions and assume patient care.
--- NOTE | 2018-03-17 07:58 | NUR ---
3020-Campos. Pt. got out of bed this morning and said he was attempting suicide by way of drowning himself in the toilet. He pulled his line caps off and Arango out. I have put the pt. on suicide watch with a sitter. Freddy HARP [phone]
[2018-03-17] MEDS: aspirin 81mg tab.chew PO SCH (08:58)
[2018-03-17] MEDS: lactobacillus rhamnosus 10,000 MMU CELLS/CAPSULE PO SCH ×2 (08:58→20:32)
[2018-03-17] MEDS: carvedilol 6.25mg tablet PO SCH ×2 (08:58→20:32)
[2018-03-17] MEDS: linezolid 600mg tablet PO SCH ×2 (08:58→20:33)
[2018-03-17] MEDS: oseltamivir 30mg capsule PO SCH ×2 (08:59→09:05)
[2018-03-17] MEDS: nicotine 21mg patch - 24 hr TD SCH (09:02)
[2018-03-17] MEDS: HYDROcodone/acetaminophen 10/325mg tab PO PRN (09:03)
[2018-03-17] MEDS: lactulose 20gm/30ml cup PO SCH ×2 (09:03→20:32)
[2018-03-17] MEDS: sodium bicarbonate (8.4%) inj. 150 MEQ in dextrose 5%-water 1,000 ML IV SCH ×2 (09:04→23:09)
[2018-03-17 09:10] LABS: ABG BASE EXCESS -1.4 mmol/L (-2.0-3.0); ABG HCO3 22.4 mmol/L (22.0-26.0); ABG OXYGEN SATURATION 98.1 % (95-98); ABG PCO2 (T) 34.5 mmHg (35.0-48.0); ABG PH (T) 7.431 (7.350-7.450); ABG PO2 (T) 138.2 mmHg (83-108); ALLEN'S TEST Positive; FCOHb 0.3 % (0.5-1.5); FO2Hb 97.8 % (94-100); MINUTE VOLUME 21 L/min; RESPIRATORY RATE 16 b/min; RESPIRATORY RATE (OBSERVED) 22 b/min; TOTAL HEMOGLOBIN 11.3 G/dl (14.0-18.0)
[2018-03-17] MEDS ORDERED: potassium Cl 20 mEq SR tablet PO STA (17:24)
--- NOTE | 2018-03-17 18:16 | NUR ---
Patient in room PCU 3020. I have received report from antoni Morin and had the opportunity to ask questions and assume patient care.
--- NOTE | 2018-03-17 18:41 | NUR ---
Problems reprioritized. Patient report given, questions answered & plan of care reviewed with Mandie HARP.
[2018-03-18] VITALS (15 sets, daily range): BP systolic 136–194; BP diastolic 65–103
[2018-03-18] MEDS: piperacillin-tazo 2.25gm/50ml 50 ML IV SCH ×4 (00:29→16:06)
[2018-03-18] MEDS: ipratropium/albuterol 3ml nebule NEB SCH ×3 (02:04→20:16)
[2018-03-18 03:56] LABS: BASOPHILS % (AUTO) 0.1 % (0-1); EOSINOPHILS % (AUTO) 0.3 % (0-6); HEMATOCRIT 29.2 % (42.0-52.0); HEMOGLOBIN 9.9 g/dl (14.0-17.9); LYMPHOCYTES # (AUTO) 0.4 X10'3 (1.1-4.8); LYMPHOCYTES % (AUTO) 5.1 % (21-51); MEAN CORPUSCULAR HEMOGLOBIN 30.5 PG (27.0-31.0); MEAN CORPUSCULAR HGB CONC 33.8 % (33.0-36.5); MEAN CORPUSCULAR VOLUME 90.2 FL (78-98); MEAN PLATELET VOLUME 8.7 FL (7.4-10.4); MONOCYTES # (AUTO) 0.3 X10'3 (0-0.9); MONOCYTES % (AUTO) 3.8 % (2-12); NEUTROPHILS % (AUTO) 90.7 % (42-75); RED BLOOD COUNT 3.24 X10'6 (4.70-6.10); RED CELL DISTRIBUTION WIDTH 12.8 % (11.5-14.5); WHITE BLOOD COUNT 7.7 X10'3 (4.5-11.0)
[2018-03-18 04:08] LABS: INR 1.3 INR; PROTHROMBIN TIME 12.8 SECONDS (9.0-12.0)
[2018-03-18 04:28] LABS: ALANINE AMINOTRANSFERASE 961 U/L (12-78); ALBUMIN/GLOBULIN RATIO 0.6 (1.1-1.5); ALKALINE PHOSPHATASE 98 IU/L (46-116); ANION GAP 15 (8-16); ASPARTATE AMINO TRANSFERASE 304 U/L (10-37); BILIRUBIN,TOTAL 1.3 MG/DL (0.1-1.0); BLOOD UREA NITROGEN 77 MG/DL (7-18); BUN/CREATININE RATIO 8.7 (5.4-32.0); CHLORIDE 90 MMOL/L (99-107); CREATININE 8.84 MG/DL (0.60-1.10); GLUCOSE 103 MG/DL (70-104); PHOSPHORUS 6.2 MG/DL (2.3-4.5); SODIUM 133 MMOL/L (135-145); TOTAL CARBON DIOXIDE 27.6 MMOL/L (24-32); TOTAL PROTEIN 5.2 G/DL (6.4-8.2); eGFR 6 ML/MIN
[2018-03-18 04:32] LABS: CALCIUM 5.2 MG/DL (8.5-10.1)
[2018-03-18] MEDS ORDERED: calcium chloride inj. 1,000 MG in normal saline 100ml IV soln 90 ML IV ONE (04:40)
--- NOTE | 2018-03-18 04:42 | NUR ---
called Harvinder for critical values, k+ 3.0 and ca 5.2, k+ will be addressed during dialysis and replaced ivp CA Cl 1 g x1 now
[2018-03-18 04:53] LABS: CREATINE KINASE 5407 U/L (39-308)
[2018-03-18 05:05] LABS: PLATELET COUNT 48 X10'3 (140-440)
[2018-03-18 05:19] LABS: NUCLEATED RED BLOOD CELLS 1 /100WBC (0-0); PLATELET ESTIMATE DECREASED; TOTAL CELLS COUNTED 100
--- NOTE | 2018-03-18 06:22 | NUR ---
Problems reprioritized. Patient report given, questions answered & plan of care reviewed with KATIUSKA Harris.
--- NOTE | 2018-03-18 06:40 | NUR ---
Patient in room PCU 3020. I have received report from Mandie HARP and had the opportunity to ask questions and assume patient care. Pt is on Dobutamine 4.99 mcg/kg/min, Bicarb 75 mL/hr, and Bipap at 35 %. Pt is awake and resting in bed. Will continue to monitor.
[2018-03-18] MEDS: nicotine 21mg patch - 24 hr TD SCH (08:00)
[2018-03-18] MEDS ORDERED: normal saline 1000ml 250 ML IV PRN (08:26)
[2018-03-18] MEDS ORDERED: heparin 1,000unit/ml 10ml vial 10 ML IV ONE (08:26)
[2018-03-18] MEDS: sodium bicarbonate (8.4%) inj. 150 MEQ in dextrose 5%-water 1,000 ML IV SCH (08:28)
[2018-03-18] MEDS ORDERED: calcium chloride 100 MG/1 ML inj IV ONE (08:30)
[2018-03-18] MEDS: linezolid 600mg tablet PO SCH ×2 (08:30→20:32)
[2018-03-18] MEDS: lactobacillus rhamnosus 10,000 MMU CELLS/CAPSULE PO SCH ×2 (08:30→20:32)
[2018-03-18] MEDS ORDERED: epoetin 20,000 units/ml inj IV ONE (08:30)
[2018-03-18] MEDS: carvedilol 6.25mg tablet PO SCH (08:30)
[2018-03-18] MEDS: oseltamivir 30mg capsule PO SCH (08:30)
[2018-03-18] MEDS ORDERED: heparin 1,000 units/ml 10ml inj HE ONE ×2 (08:30)
[2018-03-18] MEDS: aspirin 81mg tab.chew PO SCH (08:31)
[2018-03-18] MEDS: lactulose 20gm/30ml cup PO SCH ×2 (08:31→20:31)
[2018-03-18] MEDS ORDERED: CALCIUM CHLORIDE IV ONE (08:50)
[2018-03-18] MEDS ORDERED: NORMAL SALINE IV ONE (08:50)
[2018-03-18] MEDS: calcitriol 0.25mcg capsule PO SCH (14:33)
--- NOTE | 2018-03-18 14:45 | NUR ---
Spoke with Dr. Calvillo in regards to patient's high blood pressure (175/93). Dr. Calvillo did not want me to give the hydralazine that is ordered PRN for hypertension. New order for Lisinopril PO. Will continue to monitor.
[2018-03-18] MEDS: lisinopril 10 MG tablet PO SCH (14:47)
[2018-03-18] MEDS: DOBUTamine-DoBUTrex 500mg/D5W 250 ML IV SCH (14:48)
--- NOTE | 2018-03-18 15:54 | NUR ---
PAGER ID: [phone] MESSAGE: [phone] Sanchez Pappas patient's BP is 186/62 and HR 42. Spoke with family, her son will be here later this evening. Thank youKimberly #[phone] Addendum: 03/18/18 at 1630 by Kimberly Thornton RN WRONG PATIENT
--- NOTE | 2018-03-18 15:59 | NUR ---
SS met w/pt @ bedside this afternoon to assess risk of suicide. Pt was alert to person & place. Pt still presenting w/some thought blocking- stopped talking in middle of sentence & stares off into space. Thought Contents-denies desires to . Pt reports that he feels more hopeful today than yesterday, he was able to attribute this to a visit from spouse. While pt denies AH/VH, his bxs suggests that he may be distracted by internal stimuli. While risk of suicide appears to be moderate-low, eyesight supervision is recommended at this time as pt cognitive functioning continues to be impaired and commanding AH continues to be a concern at this time.
[2018-03-18] MEDS ORDERED: carVEDilol 12.5mg tablet PO ONE (16:30)
--- NOTE | 2018-03-18 16:31 | NUR ---
Spoke with Dr. Calvillo in regards to patient's blood pressure of 195/108 and heart rate of 108. New one time order for Carvedilol 12.5 mg PO (once) and continue with scheduled dose at 2000 tonight. Pt is resting and denies chest pain, headache, and dizziness. Will continue to monitor.
--- NOTE | 2018-03-18 18:47 | NUR ---
Problems reprioritized. Patient report given, questions answered & plan of care reviewed with Kim HARP.
[2018-03-18] MEDS: carVEDilol 12.5mg tablet PO SCH (20:31)
[2018-03-19] VITALS (17 sets, daily range): BP systolic 114–155; BP diastolic 61–89
[2018-03-19] MEDS: piperacillin-tazo 2.25gm/50ml 50 ML IV SCH ×2 (00:05→08:31)
[2018-03-19] MEDS: ipratropium/albuterol 3ml nebule NEB SCH ×4 (02:04→20:20)
[2018-03-19] MEDS: DOBUTamine-DoBUTrex 500mg/D5W 250 ML IV SCH ×2 (05:26→20:35)
[2018-03-19 05:47] LABS: PROTHROMBIN TIME 12.8 SECONDS (9.0-12.0)
[2018-03-19 05:48] LABS: INR 1.3 INR
[2018-03-19 05:50] LABS: BASOPHILS % (AUTO) 0 % (0-1); EOSINOPHILS % (AUTO) 0.3 % (0-6); HEMATOCRIT 28.6 % (42.0-52.0); HEMOGLOBIN 9.7 g/dl (14.0-17.9); LYMPHOCYTES # (AUTO) 0.4 X10'3 (1.1-4.8); LYMPHOCYTES % (AUTO) 4.2 % (21-51); MEAN CORPUSCULAR HEMOGLOBIN 30.9 PG (27.0-31.0); MEAN CORPUSCULAR HGB CONC 33.8 % (33.0-36.5); MEAN CORPUSCULAR VOLUME 91.4 FL (78-98); MONOCYTES # (AUTO) 0.4 X10'3 (0-0.9); MONOCYTES % (AUTO) 3.8 % (2-12); NEUTROPHILS % (AUTO) 91.7 % (42-75); RED BLOOD COUNT 3.13 X10'6 (4.70-6.10); RED CELL DISTRIBUTION WIDTH 12.6 % (11.5-14.5); WHITE BLOOD COUNT 9.8 X10'3 (4.5-11.0)
--- NOTE | 2018-03-19 06:05 | NUR ---
Problems reprioritized. Patient report given, questions answered & plan of care reviewed with KATIUSKA Harris.
--- NOTE | 2018-03-19 06:09 | NUR ---
Patient in room PCU 3020. I have received report from Kim and had the opportunity to ask questions and assume patient care.Pt is on Dobutamine 5 mcg/kg/min, Bipap at 35 %, easy to arouse, and sleeping comfortably. Per sitter, pt had about 4 hour of sleep through out the night. Will continue to monitor.
[2018-03-19 06:11] LABS: ALANINE AMINOTRANSFERASE 707 U/L (12-78); ALBUMIN/GLOBULIN RATIO 0.6 (1.1-1.5); ALKALINE PHOSPHATASE 102 IU/L (46-116); ANION GAP 16 (8-16); ASPARTATE AMINO TRANSFERASE 194 U/L (10-37); BILIRUBIN,TOTAL 1.2 MG/DL (0.1-1.0); BLOOD UREA NITROGEN 53 MG/DL (7-18); BUN/CREATININE RATIO 7.7 (5.4-32.0); CALCIUM 6.5 MG/DL (8.5-10.1); CHLORIDE 95 MMOL/L (99-107); CREATININE 6.88 MG/DL (0.60-1.10); GLUCOSE 97 MG/DL (70-104); PHOSPHORUS 4.6 MG/DL (2.3-4.5); POTASSIUM 3.6 MMOL/L (3.5-5.1); SODIUM 135 MMOL/L (135-145); TOTAL CARBON DIOXIDE 23.9 MMOL/L (24-32); TOTAL PROTEIN 5.1 G/DL (6.4-8.2); eGFR 8 ML/MIN
[2018-03-19 06:13] LABS: CREATINE KINASE 2069 U/L (39-308)
[2018-03-19 06:32] LABS: PLATELET COUNT 49 X10'3 (140-440)
[2018-03-19] MEDS: nicotine 21mg patch - 24 hr TD SCH (08:00)
[2018-03-19] MEDS: lactobacillus rhamnosus 10,000 MMU CELLS/CAPSULE PO SCH ×2 (08:30→20:38)
[2018-03-19] MEDS: lisinopril 10 MG tablet PO SCH (08:30)
[2018-03-19] MEDS: aspirin 81mg tab.chew PO SCH (08:31)
[2018-03-19] MEDS: carVEDilol 12.5mg tablet PO SCH ×2 (08:31→20:37)
[2018-03-19] MEDS: lactulose 20gm/30ml cup PO SCH ×2 (08:31→20:39)
[2018-03-19] MEDS: calcitriol 0.25mcg capsule PO SCH (08:33)
[2018-03-19] MEDS: oseltamivir 30mg capsule PO SCH (08:46)
[2018-03-19] MEDS: linezolid 600mg tablet PO SCH (08:46)
--- NOTE | 2018-03-19 10:39 | NUR ---
PAGER ID: [phone] MESSAGE: [phone] Geraldo Gasca Pt had a 4 beat run of VTACH, pt is asymptomatic, BP 135/76, HR 76 Thank you, Kimberly #[phone]
--- NOTE | 2018-03-19 11:34 | NUR ---
SS Met w/pt's spouse, utilized MT strategies to engage spouse and assess pt's support sxs in the home. Per discussion, pt's been 100% independent w/ADLs, drives and compliant with MH treatment regiment. The previous PHF admission occurred after outpt. MH provider made adjustments to medication regiment. Spouse reports that pt's never reported any AH/VH to her, she did share that pt's experiences pauses while in conversation with her but have been able to continue to track conversation topic once he respond. Spouse reports that today pt appears in better mood, and she feels that he's more hopeful. She expressed concerns re pt's been off his MH medication since coming to the hospital, SS will review chart to see if doctor had made any notes re resumption of psych meds and provide referral to [facility] for an eval if warranted. Per chart review, Dr. Calvillo had met w/pt yesterday and did indicate that an MH eval is needed to resume psych meds. SS contacted [facility] and requested for one of their doctors to see pt and evaluate him to determine appropriate medication regiment to treat MH sxs. SS to continue to monitor to facilitate a safe dcp and ensure continuity of care.
--- NOTE | 2018-03-19 11:54 | NUR ---
SS contacted [facility], spoke w/Laurence, she will let [facility] doctors know that pt needs a medication eval to resume his psych meds while here @ the hospital. RN & CM informed.
--- NOTE | 2018-03-19 13:51 | NUR ---
Reassessment: Per MD note liver failure improving. Pt continues to receive HD with 4L fluid removed 03/18 and pt continues with BiPAP use d/t SOB per MD notes. Documented PO intake 75-100% meeting nutrient needs. LBM 03/19 noted to be loose stool d/t use of Lactulose. Will continue to follow. Rec: 1. Continue with renal diet 2. monitor for ONS needs 3. monitor for additional GI symptoms/PERT needs if lipase remains elevated 4. wt per rx Addendum: 03/19/18 at [address] Amended: Links added.
--- NOTE | 2018-03-19 18:38 | NUR ---
Problems reprioritized. Patient report given, questions answered & plan of care reviewed with Kim HARP.
--- NOTE | 2018-03-19 18:38 | NUR ---
Patient in room U 3020. I have received report from Kimberly HARP and had the opportunity to ask questions and assume patient care. Upon arrival at the room for bedside report. Patient in the bathroom on the toilet with sitter in attendance. Patient found to be bleeding from his extended IV, the y-port has broken off behind the one way valve port. I was able to pinch off the y-port then clamp with hemostat. Patient assisted back to bed with gait belt, front wheel walker. Patient cleaned up and new gown provided. IV dressing changed, New Y-Port attached, line flushes and draws without trouble. New IV tubing for Dobutamine. Will continue to monitor IV site. Upon physical exam patient found to have bleeding skin tear to scrotum. Per Kimberly HARP, patient had skin tear to scrotum while walking with PT today. Direct pressure applied, bleeding controlled. Will continue to monitor. Patient states he feels okay. Patient denies any questions about the recent events.
[2018-03-19] MEDS: methylPREDNISolone sod succ 125mg/2ml vial IV SCH (20:40)
--- NOTE | 2018-03-19 21:00 | NUR ---
Extended IV reassessed. Found to have increased bruising in upper arm around site, arm appears puffy. Dobutamine drip moved to Right wrist PIV. Extended PIV does draw and flush without difficulty or compliant of pain from patient. Due to the recent events of pulling of the extended line at the beginning of shift, the safety of the infusion continuing in the line is in question. Chose to use PIV until further assessment by PICC/ BOSOM PRESSER can be done during day shift.
[2018-03-19] MEDS ORDERED: lithium carbonate 150mg capsule PO SCH (22:38)
[2018-03-19] MEDS ORDERED: lithium carbonate 150mg capsule PO ONE (22:40)
[2018-03-20] VITALS (15 sets, daily range): BP systolic 135–165; BP diastolic 76–103
[2018-03-20] MEDS: ipratropium/albuterol 3ml nebule NEB SCH ×6 (00:09→23:00)
[2018-03-20] MEDS: methylPREDNISolone sod succ 125mg/2ml vial IV SCH ×4 (02:10→20:51)
[2018-03-20 05:46] LABS: INR 1.3 INR; PROTHROMBIN TIME 13.3 SECONDS (9.0-12.0)
[2018-03-20 05:56] LABS: BASOPHILS % (AUTO) 0.1 % (0-1); EOSINOPHILS % (AUTO) 0 % (0-6); HEMATOCRIT 28.8 % (42.0-52.0); HEMOGLOBIN 9.7 g/dl (14.0-17.9); LYMPHOCYTES # (AUTO) 0.3 X10'3 (1.1-4.8); LYMPHOCYTES % (AUTO) 2.2 % (21-51); MEAN CORPUSCULAR HEMOGLOBIN 30.5 PG (27.0-31.0); MEAN CORPUSCULAR HGB CONC 33.7 % (33.0-36.5); MEAN CORPUSCULAR VOLUME 90.7 FL (78-98); MEAN PLATELET VOLUME 9.1 FL (7.4-10.4); MONOCYTES # (AUTO) 0.1 X10'3 (0-0.9); MONOCYTES % (AUTO) 0.6 % (2-12); NEUTROPHILS # (AUTO) 13.6 X10'3 (1.8-7.7); NEUTROPHILS % (AUTO) 97.1 % (42-75); RED BLOOD COUNT 3.17 X10'6 (4.70-6.10); RED CELL DISTRIBUTION WIDTH 13.1 % (11.5-14.5)
[2018-03-20 06:03] LABS: ALANINE AMINOTRANSFERASE 556 U/L (12-78); ALBUMIN/GLOBULIN RATIO 0.6 (1.1-1.5); ALKALINE PHOSPHATASE 106 IU/L (46-116); ANION GAP 18 (8-16); ASPARTATE AMINO TRANSFERASE 134 U/L (10-37); BILIRUBIN,TOTAL 1.1 MG/DL (0.1-1.0); BLOOD UREA NITROGEN 77 MG/DL (7-18); CALCIUM 6.1 MG/DL (8.5-10.1); CHLORIDE 93 MMOL/L (99-107); CREATININE 8.55 MG/DL (0.60-1.10); GLUCOSE 132 MG/DL (70-104); MAGNESIUM 2.1 MG/DL (1.5-2.4); PHOSPHORUS 5.6 MG/DL (2.3-4.5); POTASSIUM 3.8 MMOL/L (3.5-5.1); SODIUM 131 MMOL/L (135-145); TOTAL CARBON DIOXIDE 19.9 MMOL/L (24-32); TOTAL PROTEIN 5.5 G/DL (6.4-8.2); eGFR 6 ML/MIN
[2018-03-20 06:20] LABS: CREATINE KINASE 1502 U/L (39-308)
--- NOTE | 2018-03-20 06:25 | NUR ---
Problems reprioritized. Patient report given, questions answered & plan of care reviewed with KATIUSKA Harris. Patient sleeping at time of report.
--- NOTE | 2018-03-20 06:30 | NUR ---
Patient in room PCU 3020. I have received report from Kim HARP and had the opportunity to ask questions and assume patient care. Pt is on Dobutamine at 5 mcg/kg/min, and BiPap at 35%. There is some bruising to the inside of the right upper arm (near the extended). I will not use the extended at this time. I will page the PICC nurse and as Addendum: 03/20/18 at 0635 by Kimberly Thornton RN and ask PICC nurse to assess. Will continue to monitor.
[2018-03-20 06:39] LABS: PLATELET COUNT 44 X10'3 (140-440)
--- NOTE | 2018-03-20 07:11 | NUR ---
PAGER ID: [phone] MESSAGE: [phone] Geraldo Gasca Critical platelet count of 44, a decrease from yesterday's count of 49. Thank you, Kimberly # [phone]
--- NOTE | 2018-03-20 07:16 | NUR ---
paged PICC nurse regarding extended in right arm, awaiting call back
[2018-03-20] MEDS: lactulose 20gm/30ml cup PO SCH ×2 (08:00→20:51)
[2018-03-20] MEDS ORDERED: heparin 1,000 units/ml 10ml inj HE ONE ×2 (08:00)
[2018-03-20] MEDS: nicotine 21mg patch - 24 hr TD SCH (08:00)
[2018-03-20] MEDS ORDERED: epoetin 20,000 units/ml inj IV ONE (08:00)
[2018-03-20] MEDS ORDERED: normal saline 1000ml 250 ML IV PRN (08:00)
[2018-03-20] MEDS ORDERED: heparin 1,000unit/ml 10ml vial 10 ML IV ONE (08:00)
--- NOTE | 2018-03-20 08:31 | NUR ---
PAGER ID: [phone] MESSAGE: [phone] Geraldo Gasca May I put in an order for an ammonia level? He is still rec Lactulose but we do not have a current ammonia level. Thank you, Kimberly #[phone]
[2018-03-20] MEDS: calcitriol 0.25mcg capsule PO SCH (08:56)
[2018-03-20] MEDS: aspirin 81mg tab.chew PO SCH (08:56)
[2018-03-20] MEDS: lisinopril 10 MG tablet PO SCH (08:56)
[2018-03-20] MEDS: carVEDilol 12.5mg tablet PO SCH ×2 (08:56→20:51)
[2018-03-20] MEDS: lactobacillus rhamnosus 10,000 MMU CELLS/CAPSULE PO SCH ×2 (08:57→20:51)
[2018-03-20] MEDS: DOBUTamine-DoBUTrex 500mg/D5W 250 ML IV SCH (14:43)
--- NOTE | 2018-03-20 18:30 | NUR ---
Problems reprioritized. Patient report given, questions answered & plan of care reviewed with Kristi HARP.
--- NOTE | 2018-03-20 20:12 | NUR ---
Problems reprioritized. Patient report given, questions answered & plan of care reviewed with Ever HARP. Patient transferred to ACCE unit room 309 with all his belongings. Patient transferred via a recliner at his request. No apparent signs of distress. Patient alert and oriented. Addendum: 03/20/18 at 2015 by Kristi Sullivan RN Disregard - incorrect patient
[2018-03-21] VITALS (20 sets, daily range): BP systolic 138–167; BP diastolic 86–110
[2018-03-21] MEDS: methylPREDNISolone sod succ 125mg/2ml vial IV SCH ×4 (02:42→20:18)
[2018-03-21] MEDS: DOBUTamine-DoBUTrex 500mg/D5W 250 ML IV SCH (05:30)
[2018-03-21 06:20] LABS: BASOPHILS % (AUTO) 0 % (0-1); EOSINOPHILS % (AUTO) 0 % (0-6); HEMATOCRIT 30.2 % (42.0-52.0); HEMOGLOBIN 10.1 g/dl (14.0-17.9); LYMPHOCYTES # (AUTO) 0.4 X10'3 (1.1-4.8); LYMPHOCYTES % (AUTO) 1.9 % (21-51); MEAN CORPUSCULAR HGB CONC 33.5 % (33.0-36.5); MEAN CORPUSCULAR VOLUME 89.7 FL (78-98); MEAN PLATELET VOLUME 9.6 FL (7.4-10.4); MONOCYTES # (AUTO) 0.3 X10'3 (0-0.9); MONOCYTES % (AUTO) 1.6 % (2-12); NEUTROPHILS # (AUTO) 19.5 X10'3 (1.8-7.7); NEUTROPHILS % (AUTO) 96.5 % (42-75); PLATELET COUNT 63 X10'3 (140-440); RED BLOOD COUNT 3.36 X10'6 (4.70-6.10); RED CELL DISTRIBUTION WIDTH 13.4 % (11.5-14.5); WHITE BLOOD COUNT 20.2 X10'3 (4.5-11.0)
--- NOTE | 2018-03-21 06:26 | NUR ---
Problems reprioritized. Patient report given, questions answered & plan of care reviewed with Shazia HARP & Melva RN.
[2018-03-21 06:35] LABS: INR 1.3 INR; PROTHROMBIN TIME 12.9 SECONDS (9.0-12.0)
[2018-03-21 07:02] LABS: ALANINE AMINOTRANSFERASE 495 U/L (12-78); ALBUMIN 2.2 G/DL (3.4-5.0); ALBUMIN/GLOBULIN RATIO 0.6 (1.1-1.5); ALKALINE PHOSPHATASE 110 IU/L (46-116); ANION GAP 18 (8-16); ASPARTATE AMINO TRANSFERASE 109 U/L (10-37); BILIRUBIN,TOTAL 1.2 MG/DL (0.1-1.0); BLOOD UREA NITROGEN 71 MG/DL (7-18); BUN/CREATININE RATIO 10.2 (5.4-32.0); CALCIUM 6.5 MG/DL (8.5-10.1); CHLORIDE 95 MMOL/L (99-107); CREATININE 6.96 MG/DL (0.60-1.10); GLUCOSE 147 MG/DL (70-104); MAGNESIUM 2.2 MG/DL (1.5-2.4); PHOSPHORUS 4.6 MG/DL (2.3-4.5); SODIUM 134 MMOL/L (135-145); TOTAL CARBON DIOXIDE 20.6 MMOL/L (24-32); eGFR 8 ML/MIN
[2018-03-21 07:06] LABS: CREATINE KINASE 1073 U/L (39-308)
[2018-03-21] MEDS: ipratropium/albuterol 3ml nebule NEB SCH ×5 (07:07→23:28)
--- NOTE | 2018-03-21 07:09 | NUR ---
Patient in room PCU 3020. I have received report from KATIUSKA BORJA and had the opportunity to ask questions and assume patient care. Addendum: 03/21/18 at 0817 by Shazia Stanley RN pt sleeping, doubutamine bag empty, Kristi carter RN verbalized will change bag. sitter and aide cleaning bm, will be back to assess pt further.
--- NOTE | 2018-03-21 07:50 | NUR ---
in to assess to, pt non- responsive to sternal rub, non- verbal, pt on bipap 30% o2 100% rapid response called. db, horticulture professor in to see pt, asssessed pt, abg's drawn, cxr, abx, blood cultures drawn per Dr. Naqvi. will continue to monitor pt closely. vital signs 161/99 86hr, dobutamine gtt @ 5.
--- NOTE | 2018-03-21 07:52 | NUR ---
PAGER ID: [phone] MESSAGE: PLEASE CALL JOSE HEAD Nils #[phone] REGARDING [phone] NON RESPONSIVE, RAPID CALLED Addendum: 03/21/18 at 0757 by Angelia Rollins RN Amended: Links added.
[2018-03-21] MEDS: lactobacillus rhamnosus 10,000 MMU CELLS/CAPSULE PO SCH ×2 (08:00→20:00)
[2018-03-21] MEDS: carVEDilol 12.5mg tablet PO SCH ×2 (08:00→20:00)
[2018-03-21] MEDS: nicotine 21mg patch - 24 hr TD SCH (08:00)
[2018-03-21] MEDS: calcitriol 0.25mcg capsule PO SCH (08:00)
[2018-03-21] MEDS: lisinopril 10 MG tablet PO SCH (08:00)
[2018-03-21] MEDS: aspirin 81mg tab.chew PO SCH (08:00)
[2018-03-21] MEDS: lactulose 20gm/30ml cup PO SCH ×2 (08:00→20:00)
--- NOTE | 2018-03-21 08:00 | NUR ---
pt is coughing intermitently, on bipap
[2018-03-21 08:16] LABS: ABG BASE EXCESS -1.8 mmol/L (-2.0-3.0); ABG HCO3 20.9 mmol/L (22.0-26.0); ABG OXYGEN SATURATION 97.8 % (95-98); ABG PCO2 (T) 28.5 mmHg (35.0-48.0); ABG PH (T) 7.484 (7.350-7.450); ABG PO2 (T) 115.5 mmHg (83-108); ALLEN'S TEST Positive; FCOHb 0.3 % (0.5-1.5); FO2Hb 97.5 % (94-100); RESPIRATORY RATE 16 b/min; RESPIRATORY RATE (OBSERVED) 23 b/min; TOTAL HEMOGLOBIN 9.5 G/dl (14.0-18.0)
[2018-03-21] MEDS: piperacillin-tazo 2.25gm/50ml 50 ML IV SCH ×2 (09:04→16:54)
--- NOTE | 2018-03-21 09:07 | NUR ---
in to see pt, still non responsive to sternal rub, pt coughing intermittently, moving arms and legs at times, sitter at bedside. pt on bipap o2 30% 96% hr 96, rr 22. dobutamine gtt @5 163/111
--- NOTE | 2018-03-21 09:22 | NUR ---
PAGED DR MURPHY WITH PTS BP 163/111 ASKING IF HE WANTS TO DECREASE DOBUTAMINE OR GIVE PRN APRESSOLINE
--- NOTE | 2018-03-21 09:55 | NUR ---
in to see pt, pt still non responsive to sternal rub, sitter at bedside, current bp 164/104 hr 90 o2 99% on [id number] 30% rr 25. will continue to monitor pt
[2018-03-21] MEDS: linezolid 600mg/300ml PREMIX 300 ML IV SCH ×2 (10:44→20:18)
--- NOTE | 2018-03-21 11:30 | NUR ---
DR. MURPHY IN TO SEE PT, AWARE OF PTS CONDITION, HE WILL REVIEW MEDICATIONS, PER DR. BANDA DOBUTAMINE DECREASED TO 3MCG, SCD'S PLACED ON PT, SITTER AT BEDSIDE, AWARE OF LA LEVEL AND CURRENT LABS, CXR. PT NON RESPONSIVE TO VERBAL OR STERNAL RUB. Addendum: 03/21/18 at 1208 by Shazia Stanley RN DR. MURPHY AWARE OF POOR URINE OUTPUT 21ML TODAY
--- NOTE | 2018-03-21 16:50 | NUR ---
NOTIFIED HENRY FIORE OF LITHIUM LEVEL AND CT RESULTS. SHE WILL CONSULT WITH DR. FUENTES
[2018-03-21] MEDS: acetaminophen 650mg rectal suppository RC PRN (17:49)
[2018-03-21] MEDS ORDERED: DOBUTamine-DoBUTrex 500mg/D5W 250 ML IV SCH (18:00)
--- NOTE | 2018-03-21 18:42 | NUR ---
Problems reprioritized. Patient report given, questions answered & plan of care reviewed with DEEP, RN SBAR AND BEDSIDE. NOC RN AWARE NEED TO COLLECT UA.
[2018-03-22] MEDS: piperacillin-tazo 2.25gm/50ml 50 ML IV SCH ×3 (01:02→15:44)
[2018-03-22] MEDS: methylPREDNISolone sod succ 125mg/2ml vial IV SCH ×2 (01:02→07:38)
[2018-03-22 02:05] LABS: CLARITY,URINE SLIGHTLY CLOUDY (Clear); COLOR,URINE YELLOW (Yellow); GLUCOSE, URINE NEGATIVE (Neg); KETONES,URINE NEGATIVE (Neg); LEUKOCYTE ESTERASE ,URINE SMALL (Neg); NITRITES, URINE NEGATIVE (Neg); OCCULT BLOOD,URINE LARGE (Neg); PROTEIN,URINE 100 mg/dl (Neg); UROBILINOGEN,URINE 0.2 E.U/dL (0.2-1.0)
[2018-03-22 02:10] LABS: UA COLLECTION TYPE FOLEY CATH
[2018-03-22 02:11] LABS: BACTERIA,URINE FEW /HPF (Neg); RBC,URINE 20-50 /HPF (0-2); SQUAMOUS EPITHELIAL CELL,UR FEW /LPF (FEW); WBC,URINE 0-4 /HPF (0-4); YEAST MODERATE /HPF (NEGATIVE)
[2018-03-22 03:00] VITALS: BP 138/97
--- NOTE | 2018-03-22 03:25 | NUR ---
Called and notified . Dr Jinny HIGH in regards to pt worsening lung sounds throughout. vitals stable within normal limits. pt continues to be obtunded. no new orders at this time. Will cont to monitor.
[2018-03-22] MEDS: acetaminophen 650mg rectal suppository RC PRN (05:11)
[2018-03-22 06:00] VITALS: BP 138/91
--- NOTE | 2018-03-22 06:36 | NUR ---
Problems reprioritized. Patient report given, questions answered & plan of care reviewed with KATIUSKA Hayes.
[2018-03-22 07:03] LABS: BASOPHILS % (AUTO) 0.1 % (0-1); EOSINOPHILS % (AUTO) 0 % (0-6); HEMATOCRIT 28.3 % (42.0-52.0); HEMOGLOBIN 9.8 g/dl (14.0-17.9); LYMPHOCYTES # (AUTO) 0.4 X10'3 (1.1-4.8); LYMPHOCYTES % (AUTO) 1.8 % (21-51); MEAN CORPUSCULAR HEMOGLOBIN 31.1 PG (27.0-31.0); MEAN CORPUSCULAR HGB CONC 34.7 % (33.0-36.5); MEAN CORPUSCULAR VOLUME 89.6 FL (78-98); MEAN PLATELET VOLUME 9.4 FL (7.4-10.4); MONOCYTES # (AUTO) 0.7 X10'3 (0-0.9); MONOCYTES % (AUTO) 3.2 % (2-12); NEUTROPHILS # (AUTO) 20.8 X10'3 (1.8-7.7); NEUTROPHILS % (AUTO) 94.9 % (42-75); PLATELET COUNT 51 X10'3 (140-440); RED BLOOD COUNT 3.15 X10'6 (4.70-6.10); RED CELL DISTRIBUTION WIDTH 13.2 % (11.5-14.5); WHITE BLOOD COUNT 21.9 X10'3 (4.5-11.0)
[2018-03-22 07:10] LABS: INR 1.4 INR; PROTHROMBIN TIME 14.3 SECONDS (9.0-12.0)
[2018-03-22 07:11] LABS: ALANINE AMINOTRANSFERASE 381 U/L (12-78); ALBUMIN/GLOBULIN RATIO 0.5 (1.1-1.5); ALKALINE PHOSPHATASE 102 IU/L (46-116); ANION GAP 20 (8-16); ASPARTATE AMINO TRANSFERASE 118 U/L (10-37); BILIRUBIN,TOTAL 1.1 MG/DL (0.1-1.0); BLOOD UREA NITROGEN 107 MG/DL (7-18); BUN/CREATININE RATIO 11.3 (5.4-32.0); CHLORIDE 96 MMOL/L (99-107); CREATINE KINASE 638 U/L (39-308); CREATININE 9.44 MG/DL (0.60-1.10); GLUCOSE 153 MG/DL (70-104); MAGNESIUM 2.3 MG/DL (1.5-2.4); PHOSPHORUS 5.3 MG/DL (2.3-4.5); POTASSIUM 4.6 MMOL/L (3.5-5.1); SODIUM 135 MMOL/L (135-145); TOTAL CARBON DIOXIDE 19.2 MMOL/L (24-32); TOTAL PROTEIN 5.7 G/DL (6.4-8.2); eGFR 6 ML/MIN
[2018-03-22 07:20] LABS: CALCIUM 5.8 MG/DL (8.5-10.1)
--- NOTE | 2018-03-22 07:23 | NUR ---
PAGER ID: [phone] MESSAGE: Peg9-Campos. Pt. has Critical Lab this morning. Calcium level - 5.8 Freddy HARP [phone]
[2018-03-22] MEDS: linezolid 600mg/300ml PREMIX 300 ML IV SCH ×2 (07:37→20:30)
[2018-03-22] MEDS: nicotine 21mg patch - 24 hr TD SCH (07:38)
[2018-03-22 07:45] LABS: LARGE PLATELETS FEW; PLATELET ESTIMATE DECREASED
[2018-03-22] MEDS: aspirin 81mg tab.chew PO SCH (08:00)
[2018-03-22] MEDS: calcitriol 0.25mcg capsule PO SCH (08:00)
[2018-03-22] MEDS: lactulose 20gm/30ml cup PO SCH ×2 (08:00→20:00)
[2018-03-22] MEDS: lactobacillus rhamnosus 10,000 MMU CELLS/CAPSULE PO SCH ×2 (08:00→20:00)
[2018-03-22] MEDS: lisinopril 10 MG tablet PO SCH (08:00)
[2018-03-22] MEDS: carVEDilol 12.5mg tablet PO SCH ×2 (08:00→20:00)
[2018-03-22] MEDS: ipratropium/albuterol 3ml nebule NEB SCH ×5 (08:02→23:25)
[2018-03-22] MEDS ORDERED: calcium gluconate inj. 2 GM in normal saline 100ml IV soln 80 ML IV ONE (09:55)
[2018-03-22] MEDS ORDERED: heparin 1,000 units/ml 10ml inj IV ONE (10:00)
[2018-03-22] MEDS ORDERED: calcium chloride 100 MG/1 ML inj IV ONE (10:00)
[2018-03-22] MEDS ORDERED: normal saline 1000ml 250 ML IV PRN (10:00)
[2018-03-22] MEDS ORDERED: heparin 1,000unit/ml 10ml vial 10 ML IV ONE (10:00)
[2018-03-22] MEDS ORDERED: CALCIUM CHLORIDE IV ONE (10:05)
[2018-03-22] MEDS ORDERED: heparin 1,000 units/ml 10ml inj HE ONE ×2 (10:05)
[2018-03-22] MEDS ORDERED: NORMAL SALINE IV ONE (10:05)
[2018-03-22 11:00] VITALS: BP 130/79
[2018-03-22 15:00] VITALS: BP 161/76
[2018-03-22] MEDS ORDERED: amiodarone 150mg/dext, iso-os 100 ML IV ONE (17:55)
[2018-03-22 18:00] VITALS: BP 112/76
--- NOTE | 2018-03-22 18:26 | NUR ---
Pt's TDC removed and sent to lab for culture..... Pt. went into A-Fib with RVR 160s-180s. I called Dr. Sandoval and he told me to start the patient on the Amiodarone protocol. I started the loading dose and passed off care to Anabel HARP
[2018-03-22] MEDS: amiodarone/D5 360MG/200ML BAG 200 ML IV SCH (18:56)
--- NOTE | 2018-03-22 21:12 | NUR ---
Patient in room PCU 3020. I have received report from Freddy HARP and had the opportunity to ask questions and assume patient care with Billie HARP
[2018-03-22 23:00] VITALS: BP 119/76
[2018-03-23] VITALS (16 sets, daily range): BP systolic 87–128; BP diastolic 55–75
[2018-03-23] MEDS: piperacillin-tazo 2.25gm/50ml 50 ML IV SCH ×3 (00:04→16:30)
[2018-03-23] MEDS: amiodarone/D5 360MG/200ML BAG 200 ML IV SCH ×3 (00:47→23:44)
[2018-03-23] MEDS: acetaminophen 650mg rectal suppository RC PRN ×3 (02:18→19:50)
[2018-03-23 06:04] LABS: BASOPHILS % (AUTO) 0.1 % (0-1); EOSINOPHILS % (AUTO) 0 % (0-6); HEMATOCRIT 31.1 % (42.0-52.0); HEMOGLOBIN 10.3 g/dl (14.0-17.9); LYMPHOCYTES # (AUTO) 0.2 X10'3 (1.1-4.8); LYMPHOCYTES % (AUTO) 1.2 % (21-51); MEAN CORPUSCULAR HEMOGLOBIN 30.4 PG (27.0-31.0); MEAN CORPUSCULAR HGB CONC 33.1 % (33.0-36.5); MEAN CORPUSCULAR VOLUME 91.6 FL (78-98); MEAN PLATELET VOLUME 10.5 FL (7.4-10.4); MONOCYTES # (AUTO) 0.6 X10'3 (0-0.9); MONOCYTES % (AUTO) 3.3 % (2-12); NEUTROPHILS # (AUTO) 18.5 X10'3 (1.8-7.7); NEUTROPHILS % (AUTO) 95.4 % (42-75); RED CELL DISTRIBUTION WIDTH 13.6 % (11.5-14.5); WHITE BLOOD COUNT 19.3 X10'3 (4.5-11.0)
[2018-03-23 06:10] LABS: PLATELET COUNT 32 X10'3 (140-440)
[2018-03-23 06:19] LABS: ALANINE AMINOTRANSFERASE 331 U/L (12-78); ALBUMIN 1.8 G/DL (3.4-5.0); ALBUMIN/GLOBULIN RATIO 0.5 (1.1-1.5); ALKALINE PHOSPHATASE 99 IU/L (46-116); ANION GAP 22 (8-16); ASPARTATE AMINO TRANSFERASE 134 U/L (10-37); BILIRUBIN,TOTAL 1.1 MG/DL (0.1-1.0); BLOOD UREA NITROGEN 90 MG/DL (7-18); BUN/CREATININE RATIO 11.7 (5.4-32.0); CALCIUM 6.4 MG/DL (8.5-10.1); CHLORIDE 96 MMOL/L (99-107); CREATININE 7.69 MG/DL (0.60-1.10); GLUCOSE 167 MG/DL (70-104); MAGNESIUM 2.3 MG/DL (1.5-2.4); PHOSPHORUS 5.1 MG/DL (2.3-4.5); POTASSIUM 4.4 MMOL/L (3.5-5.1); SODIUM 136 MMOL/L (135-145); TOTAL CARBON DIOXIDE 18.3 MMOL/L (24-32); TOTAL PROTEIN 5.5 G/DL (6.4-8.2); eGFR 7 ML/MIN
--- NOTE | 2018-03-23 06:22 | NUR ---
Orientee documentation: I have reviewed and agree with all interventions, assessments performed and documented by Billie HARP.
--- NOTE | 2018-03-23 06:30 | NUR ---
Patient in room PCU 3020. I have received report from Asha HARP and had the opportunity to ask questions and assume patient care.
--- NOTE | 2018-03-23 06:36 | NUR ---
Problems reprioritized. Patient report given, questions answered & plan of care reviewed with Ana Maria and Barbara RNs.
[2018-03-23] MEDS: ipratropium/albuterol 3ml nebule NEB SCH ×5 (07:11→23:17)
[2018-03-23] MEDS: lactulose 20gm/30ml cup PO SCH ×2 (08:00→20:00)
[2018-03-23] MEDS: aspirin 81mg tab.chew PO SCH (08:00)
[2018-03-23] MEDS: carVEDilol 12.5mg tablet PO SCH ×2 (08:00→19:50)
[2018-03-23] MEDS: lisinopril 10 MG tablet PO SCH (08:00)
[2018-03-23] MEDS: calcitriol 0.25mcg capsule PO SCH (08:00)
[2018-03-23] MEDS: lactobacillus rhamnosus 10,000 MMU CELLS/CAPSULE PO SCH ×2 (08:00→20:00)
[2018-03-23] MEDS: linezolid 600mg/300ml PREMIX 300 ML IV SCH (09:49)
[2018-03-23] MEDS ORDERED: vancomycin/NS 1 GM ADD-VANTAGE 250 ML IV ONE (10:55)
[2018-03-23 11:49] LABS: LIPASE 1383 U/L (73-393)
--- NOTE | 2018-03-23 13:51 | NUR ---
Paged Dr. Steinberg: PAGER ID: [phone] MESSAGE: Ana Maria [facility] [phone] RE: Geraldo Gasca [phone]. For the new Corpak order what type of suction do you want ordered? Thank you.
--- NOTE | 2018-03-23 14:43 | NUR ---
12 divehi corpak placed. Patient tolerated procedure well. Will continue to monitor.
--- NOTE | 2018-03-23 14:59 | NUR ---
Tube feed consult: Pt changed to NPO r/t increasingly obtunded. Corpak placed pending confirmation w/ feeds to start today per MD. Initial TPN consult to be d/c and only enteral nutrition support following RD d/w . Shahab 9 w/ skin intact and feet +2 edema. Nutrition support recs below for DX sepsis, liver failure, ARF on HD, influenza PNA, and NSTEMI. Will monitor for feeding tolerance; higher protein recs needed given multiple extreme catabolic conditions even though in the presence of liver failure w/ encephalopathy. Rec: 1. corpak feeds per MD using Vital high protein at 80ml/hr goal; to provide 1920ml fluid, 1613ml free water, 1920kcals, and 168g protein. Initiate at 20ml/hr and advance 20ml Q8 to goal as tolerated. 2. prealbumin Q M/, daily wts 3. additional water per fuel conversion technician; on HD 4. monitor for signs of refeeding syndrome 5. consider PERT per MD approval given continual lipase elevation Addendum: 03/23/18 at [address] Amended: Links added.
--- NOTE | 2018-03-23 16:24 | NUR ---
Paged Dr. Steinberg; PAGER ID: [phone] MESSAGE: Ana Maria [facility] [phone] RE: Geraldo Gasca 3020. Corpak is placed. KUB has resulted. Can we use it for tube feed? Please advise. Thank you.
--- NOTE | 2018-03-23 18:00 | NUR ---
Orientee documentation: I have reviewed and agree with all interventions, assessments performed and documented by Barbara HARP. Orintee Medication Administration: For this medication-pass time frame, all medication were reviewed, dispensed, administered and documented per hospital policy by Barbara HARP
--- NOTE | 2018-03-23 18:30 | NUR ---
Patient in room PCU 3020. I have received report from zackary and chet rns and had the opportunity to ask questions and assume patient care with Billie HARP.
--- NOTE | 2018-03-23 18:30 | NUR ---
Problems reprioritized. Patient report given, questions answered & plan of care reviewed with Asha HARP.
--- NOTE | 2018-03-23 22:08 | NUR ---
called MD regarding temp of 103.4 axillary. other vitals within range
--- NOTE | 2018-03-23 22:15 | NUR ---
both March and Dr. Atkins came to assess patient and new abx was ordered. cooling measures being done with ice and IV tylenol was given.
[2018-03-23] MEDS ORDERED: acetaminophen 1,000mg/100ml IV 100 ML IV ONE (22:20)
[2018-03-23] MEDS ORDERED: fluconazole-Diflucan 200mg/NS 100 ML IV ONE (22:45)
[2018-03-24] VITALS (7 sets, daily range): BP systolic 40–105; BP diastolic 28–55
--- NOTE | 2018-03-24 00:23 | NUR ---
spoke with Dr. Atkins, patient rectal temp is still 104.6. abx infusing, ice packs on patient, room temp turned down. BP dropping, orders to stop amiodorone gtt. ok to give rectal tylenol again when time
[2018-03-24] MEDS ORDERED: DOBUTamine-DoBUTrex 500mg/D5W 250 ML IV SCH (00:35)
[2018-03-24] MEDS ORDERED: albumin 25% 50mL bottle 100 ML IV ONE ×2 (00:40→01:10)
[2018-03-24 01:01] LABS: ABG HCO3 15.8 mmol/L (22.0-26.0); ABG OXYGEN SATURATION 87.4 % (95-98); ABG PCO2 (T) 39.5 mmHg (35.0-48.0); ABG PH (T) 7.236 (7.350-7.450); ABG PO2 (T) 74.9 mmHg (83-108); ALLEN'S TEST Positive; FCOHb 0.3 % (0.5-1.5); FMetHb 0.1 % (0.3-1.12); FO2Hb 87.1 % (94-100); PATIENT TEMPERATURE 40.3; RESPIRATORY RATE 146 b/min; TOTAL HEMOGLOBIN 11.6 G/dl (14.0-18.0)
[2018-03-24] MEDS ORDERED: calcium chloride 100 MG/1 ML inj IV ONE ×2 (01:10→03:10)
[2018-03-24] MEDS ORDERED: methylPREDNISolone sod succ 125mg/2ml vial IV ONE (01:10)
[2018-03-24] MEDS ORDERED: normal saline 250ml IV soln 250 ML IV ONE (01:15)
[2018-03-24 01:24] LABS: ALANINE AMINOTRANSFERASE 303 U/L (12-78); ALBUMIN 1.5 G/DL (3.4-5.0); ALBUMIN/GLOBULIN RATIO 0.4 (1.1-1.5); ALKALINE PHOSPHATASE 103 IU/L (46-116); ANION GAP 23 (8-16); ASPARTATE AMINO TRANSFERASE 272 U/L (10-37); BLOOD UREA NITROGEN 120 MG/DL (7-18); BUN/CREATININE RATIO 12.2 (5.4-32.0); CHLORIDE 96 MMOL/L (99-107); CREATININE 9.81 MG/DL (0.60-1.10); GLUCOSE 150 MG/DL (70-104); MAGNESIUM 2.4 MG/DL (1.5-2.4); PHOSPHORUS 6.8 MG/DL (2.3-4.5); POTASSIUM 5.3 MMOL/L (3.5-5.1); PREALBUMIN 10.1 MG/DL (19-36); SODIUM 136 MMOL/L (135-145); TOTAL CARBON DIOXIDE 17.4 MMOL/L (24-32); TOTAL PROTEIN 5.1 G/DL (6.4-8.2); eGFR 5 ML/MIN
[2018-03-24 01:25] LABS: CALCIUM 5.5 MG/DL (8.5-10.1)
--- NOTE | 2018-03-24 01:30 | NUR ---
pt report given to Hemant in ICU. pt transferred into ICU bed, bipap on, dobutamine running, albumin infusing. RT at bedside.
[2018-03-24 01:48] LABS: BASOPHILS % (AUTO) 0 % (0-1); EOSINOPHILS % (AUTO) 0 % (0-6); HEMATOCRIT 32.8 % (42.0-52.0); HEMOGLOBIN 10.6 g/dl (14.0-17.9); LYMPHOCYTES # (AUTO) 0.4 X10'3 (1.1-4.8); LYMPHOCYTES % (AUTO) 2.7 % (21-51); MEAN CORPUSCULAR HEMOGLOBIN 29.9 PG (27.0-31.0); MEAN CORPUSCULAR HGB CONC 32.4 % (33.0-36.5); MEAN PLATELET VOLUME 10.7 FL (7.4-10.4); MONOCYTES % (AUTO) 0.3 % (2-12); NEUTROPHILS # (AUTO) 14.6 X10'3 (1.8-7.7); RED BLOOD COUNT 3.56 X10'6 (4.70-6.10); RED CELL DISTRIBUTION WIDTH 14.2 % (11.5-14.5)
[2018-03-24] MEDS: piperacillin-tazo 2.25gm/50ml 50 ML IV SCH ×2 (01:51)
--- NOTE | 2018-03-24 02:00 | NUR ---
Pt was received into the ICU on a gurney. Pt is hooked up to Bipap, O2 sats at 97%. BP has been taken, 105/49, HR of 94. Pt's RR is 16. Pt is unresponsive. Pt placed on ICU bed and hooked up to monitor. Will receive report from BIN FILLER, and then do an assessment on Pt.
--- NOTE | 2018-03-24 02:30 | NUR ---
Started assessment on Pt and noticed that his left pupil is fixed at 3mm with no reaction to light. Right pupil is fixed at 7-8mm with no reaction to light. No corneal reflex on right eye, possible slight reflex on left eye. Pt's head turned shows a fixed gaze, zero shifting of the eyes. March Adair PUBLIC RELATIONS SUPERVISOR has been informed of Pt's condition. She assessed patient and informed Dr. Wren, who placed no further orders. Pt's BP is not stable and the Pt has no central line/picc line for infusion of pressors.
--- NOTE | 2018-03-24 02:40 | NUR ---
Pt's heart rhythm is showing an increase in ST elevation in two leads, and ST depression in three leads. Pt's BP is decreasing with each new check. HR is also decreasing. March Adair FENCE MACHINE OPERATOR has been informed. She ordered Bicarb, calcium chloride, and levophed to be started at 10 mcg.
[2018-03-24] MEDS ORDERED: NORepinephrine 8mg/ 250ml NS 250 ML IV ONE (03:07)
[2018-03-24] MEDS ORDERED: NORepinephrine 8mg/ 250ml NS 250 ML IV SCH (03:10)
[2018-03-24] MEDS ORDERED: sodium bicarbonate (8.4%) 1 mEq/ml syringe IV ONE (03:10)
[2018-03-24] MEDS ORDERED: sodium bicarbonate (8.4%) 1 mEq/ml syringe ONE (03:11)
--- NOTE | 2018-03-24 03:15 | NUR ---
Pt's BP is no longer registering. Pt's HR is dropping to the 30s. His rhythm is showing pauses and highly elevated ST. Pt's as been informed.
--- NOTE | 2018-03-24 03:25 | NUR ---
RN IS TO DOCUMENT YES TO ALL APPLICABLE AREAS Pronouncement of : 1. Time Physician Notified: March Giovany XIONG 2. Date of : 03/24/18 3. Time of : 324 4. DNR/Withdraw life support documented: Yes 5. Monitor strip has been placed on chart: Yes 6. Assessment process is of one-minute duration and includes following criteria: a) Patient is unresponsive to all stimuli: Yes b) Pupils fixed and non-reactive: Yes c) Auscultation of precordium reveals absence of heart tones: Yes d) Auscultation of lungs reveals absence of breath sounds: Yes e) Absence of blood pressure / all vital signs: Yes f) QRS complexes are not present on monitor / EKG strip: Yes (Flat line) g) Pacer spikes without capture: NA 4. Comments: of patient has been notified of patient's passing.
[2018-03-24 03:54] LABS: PLATELET COUNT 27 X10'3 (140-440)
--- NOTE | 2018-03-24 05:09 | NUR ---
Waiting for to arrive to find out choice of mortuary.
[2018-03-24] MEDS ORDERED: methylPREDNISolone sod succ 125mg/2ml vial IV SCH (08:00)
--- NOTE | 2018-03-24 09:53 | NUR ---
Pt. , SS to f/u with spouse to provide support.
--- NOTE | 2018-03-24 13:44 | NUR ---
T/C with pt's spouse, she is requesting for a certificate, and have already provided mortuary info to nursing staff. SS referral closed.
[2018-03-24] MEDS ORDERED: fluconazole-Diflucan 100MG/NS 50 ML IV SCH (22:00)
== END 2018-03-24 03:30 | disposition expired | DRG 871 ==
LOC: ER 20:23 → SUR 3N 22:24 → CMPBEDREQ 03-11 00:02 → PCU 3S 03-11 14:55 → ICU 2S 03-24 01:14
PROVIDERS: ADMIT Family Medicine; ATTEND Internal Medicine Critical Care Medicine
PROC: 02HV33Z Insertion of Infusion Device into Superior Vena Cava, Percutaneous Approach (ICD-10-PCS; principal; 2018-03-13)
PROC: B548ZZA Ultrasonography of Superior Vena Cava, Guidance (ICD-10-PCS; 2018-03-13)
PROC: 5A1D70Z Performance of Urinary Filtration, Intermittent, Less than 6 Hours Per Day (ICD-10-PCS; 2018-03-14)
PROC: 5A1D70Z Performance of Urinary Filtration, Intermittent, Less than 6 Hours Per Day (ICD-10-PCS; 2018-03-15)
PROC: 5A09357 Assistance with Respiratory Ventilation, Less than 24 Consecutive Hours, Continuous Positive Airway Pressure (ICD-10-PCS; 2018-03-16)
PROC: 5A1D70Z Performance of Urinary Filtration, Intermittent, Less than 6 Hours Per Day (ICD-10-PCS; 2018-03-16)
PROC: 5A09357 Assistance with Respiratory Ventilation, Less than 24 Consecutive Hours, Continuous Positive Airway Pressure (ICD-10-PCS; 2018-03-17)
PROC: 5A09357 Assistance with Respiratory Ventilation, Less than 24 Consecutive Hours, Continuous Positive Airway Pressure (ICD-10-PCS; 2018-03-18)
PROC: 5A1D70Z Performance of Urinary Filtration, Intermittent, Less than 6 Hours Per Day (ICD-10-PCS; 2018-03-18)
PROC: 5A09357 Assistance with Respiratory Ventilation, Less than 24 Consecutive Hours, Continuous Positive Airway Pressure (ICD-10-PCS; 2018-03-19)
PROC: 5A1D70Z Performance of Urinary Filtration, Intermittent, Less than 6 Hours Per Day (ICD-10-PCS; 2018-03-20)
PROC: 5A09457 Assistance with Respiratory Ventilation, 24-96 Consecutive Hours, Continuous Positive Airway Pressure (ICD-10-PCS; 2018-03-21)
PROC: 5A1D70Z Performance of Urinary Filtration, Intermittent, Less than 6 Hours Per Day (ICD-10-PCS; 2018-03-22)
DX: A41.9 Sepsis, unspecified organism (principal); I21.A1 Myocardial infarction type 2; I50.21 Acute systolic (congestive) heart failure; J96.01 Acute respiratory failure with hypoxia; K72.00 Acute and subacute hepatic failure without coma; K85.90 Acute pancreatitis without necrosis or infection, unspecified; R65.21 Severe sepsis with septic shock; J10.08 Influenza due to other identified influenza virus with other specified pneumonia; J18.1 Lobar pneumonia, unspecified organism; I63.9 Cerebral infarction, unspecified; D68.9 Coagulation defect, unspecified; E87.2 Acidosis; I42.9 Cardiomyopathy, unspecified; M62.82 Rhabdomyolysis; N17.9 Acute kidney failure, unspecified; I13.0 Hypertensive heart and chronic kidney disease with heart failure and stage 1 through stage 4 chronic kidney disease, or unspecified chronic kidney disease; R18.8 Other ascites; G93.1 Anoxic brain damage, not elsewhere classified; E87.1 Hypo-osmolality and hyponatremia; D69.6 Thrombocytopenia, unspecified; E86.0 Dehydration; E87.6 Hypokalemia; F17.200 Nicotine dependence, unspecified, uncomplicated; F20.9 Schizophrenia, unspecified; F31.9 Bipolar disorder, unspecified; K73.9 Chronic hepatitis, unspecified; K76.0 Fatty (change of) liver, not elsewhere classified; N18.9 Chronic kidney disease, unspecified; E83.51 Hypocalcemia; R57.0 Cardiogenic shock; Z66 Do not resuscitate; S00.83XA Contusion of other part of head, initial encounter; Z79.899 Other long term (current) drug therapy; Z99.2 Dependence on renal dialysis; Z90.49 Acquired absence of other specified parts of digestive tract; W18.39XA Other fall on same level, initial encounter; Y93.89 Activity, other specified; Y92.89 Other specified places as the place of occurrence of the external cause; Y99.8 Other external cause status; Z88.8 Allergy status to other drugs, medicaments and biological substances
CPT/HCPCS: 36415; 36556; 36600; 70450; 71045; 74018; 74176; 76700; 76937; 77001; 80053; 80061; 80178; 80305; 80320; 81001; 82140; 82150; 82248; 82330; 82550; 82570; 82803; 82948; 83036; 83605; 83690; 83735; 83880; 84100; 84134; 84145; 84156; 84300; 84484; 85018; 85025; 85610; 85730; 86704; 86705; 86706; 86709; 86803; 86885; 86900; 86901; 87040; 87070; 87088; 87207; 87340; 87502; 87503; 90935; 93005; 93306; 94640; 94660; 94760; 97110; 97116; 97162; 97530; 99285; A4620; A9270; C1751; C1894; G0257; G0378; J0131; J0282; J0360; J0456; J0610; J0696; J0885; J1250; J1450; J1644; J1940; J2001; J2020; J2060; J2270; J2405; J2543; J2920; J2930; J3010; J3370; J7030; P9047